=== PATIENT | male | born 1950 | race Caucasian/White ===

== ENCOUNTER 2020-02-22 22:21 | Emergency (ER) | payer MEDICARE, SELFPAY ==
[2020-02-22 22:25] VITALS: BP 132/69; PULSE 81; RESP 15; TEMP 36.4; O2SAT 98
--- NOTE | 2020-02-22 23:21 | ED.WOUNDLAC ---
HPI - Wound/Laceration General Chief Complaint: Wound/Laceration Stated Complaint: finger lac Time Seen by Provider: 02/22/20 22:41 Source: patient Mode of arrival: ambulatory Limitations: no limitations History of Present Illness HPI narrative: This patient is a 69 yo male who presents for evaluation of a left thumb laceration. Patient states 2 hours ago he accidentally cut the side of his left thumb with a small knife. He attempted to clean and apply pressure but he was unable to stop his wound from bleeding. He denies pain, numbness, tingling or weakness . He states his tetanus shot is up to date. Related Data Home Medications Medication Instructions Recorded Confirmed aspirin 81 mg tablet,delayed 81 mg PO DAILY 09/01/19 release atorvastatin 80 mg tablet 80 mg PO DAILY 09/01/19 blood sugar diagnostic #10 each 09/01/19 finasteride 5 mg tablet 5 mg PO DAILY 09/01/19 loratadine 10 mg tablet 10 mg PO DAILY 09/01/19 losartan 50 mg tablet 50 mg PO DAILY 09/01/19 mecobalamin (vitamin B12) 1,000 1,000 mcg SUBLINGUAL DAILY 09/01/19 mcg disintegrating tablet,sublingual metformin 500 mg tablet 1,000 mg PO BID tablet 09/01/19 yzycgxqc-oht-inbyb acid 0.4 1 tablet PO DAILY 09/01/19 mg-lycopene 300 mcg-lutein 250 mcg tablet tamsulosin 0.4 mg capsule 0.4 mg PO DAILY 09/01/19 Allergies Allergy/AdvReac Type Severity Reaction Status Date / Time Dust Allergy Unknown UNKNOWN Uncoded 02/22/20 22:46 Grass Allergy Unknown UNKNOWN Uncoded 02/22/20 22:46 Review of Systems Review of Systems: All systems reviewed & are unremarkable except as noted in HPI and below Constitutional: Constitutional: Denies chills and Denies fever(s) Cardiovascular: Cardiovascular: Denies chest pain PMFSH Past Medical History Medical History (Updated 02/23/20 @ 00:11 by Odalys Chau MD) Diabetes mellitus Surgical History Surgical History (Updated 02/23/20 @ 00:12 by Odalys Chau MD) Hx of tonsillectomy Family History Family History (Updated 05/15/16 @ 23:21 by DOCTOR UNKNOWN) Mother Family history of Alzheimer's disease Hypertension Family history of heart disease in male family member before age 55 Family history of coronary artery disease Father Family history of diabetes mellitus in first degree relative Family history of heart disease in male family member before age 55 Hypertension Family history of coronary artery disease Sibling Patient's sister is in good health Patient's brother is in good health Other Cerebrovascular accident Diabetes mellitus Family history of allergic disorder Family history of cardiovascular disease Social History Social History (Updated 01/01/20 @ 11:11 by Kyra Reed) Smoking packs per day: 2.5 Smoking cigarettes per day: 50.0 Years smoked: 26 Smoking pack-years: 65.00 Smoking status: Former smoker Tobacco type: cigarettes Second hand tobacco smoke exposure: No Smoking end date: 10/18/95 Alcohol intake: never Substance use: never Substance use type: does not use Gender identity (if verbalized by the patient): Female Exam Const: General: alert Orientation/consciousness: patient oriented x3 Skin: Other: see MSK Neuro: General: patient oriented x3 and moves all extremities Extrem: General: no pedal edema Other: left thumg with full ROM, flap laceration to dorsum thumb 1 cm bleeding controlled Course Vital Signs Vital signs: Vital Signs Temperature 97.6 F 02/22/20 22:25 Pulse Rate 81 02/22/20 22:25 Respiratory Rate 15 02/22/20 22:25 Blood Pressure 132/69 02/22/20 22:25 Pulse Oximetry 98 02/22/20 22:25 Temperature 98.0 F 02/23/20 00:04 Pulse Rate 83 02/23/20 00:04 Respiratory Rate 16 02/23/20 00:04 Blood Pressure 134/66 02/23/20 00:04 Pulse Oximetry 100 02/23/20 00:04 Procedures Laceration Laceration 1: Date: 02/22/20 Time: 23:53
[2020-02-23 00:04] VITALS: BP 134/66; PULSE 83; RESP 16; TEMP 36.7; O2SAT 100
== END 2020-02-23 00:07 | disposition home or self-care (01) ==
PROVIDERS: Emergency Provider General Practice; PCP Family Medicine
DX: S61.012A Laceration without foreign body of left thumb without damage to nail, initial encounter (principal); Z79.82 Long term (current) use of aspirin; E11.9 Type 2 diabetes mellitus without complications; Z79.84 Long term (current) use of oral hypoglycemic drugs; Z87.891 Personal history of nicotine dependence; W26.0XXA Contact with knife, initial encounter
CPT/HCPCS: 12001; 99282

== ENCOUNTER → 2021-02-21 06:37 | Outpatient (CLI) | payer MEDICARE, SELFPAY ==
[2021-02-21 18:42] LABS: SARS-CoV-2 RNA PCR Negative
== END ==
PROVIDERS: PCP Family Medicine; Visit Provider Family Medicine
DX: Z20.822 Contact with and (suspected) exposure to COVID-19 (principal)
CPT/HCPCS: C9803; U0003; U0005

== ENCOUNTER → 2021-06-19 03:49 | Outpatient (CLI) | payer MEDICARE, SELFPAY ==
[2021-06-19 19:18] LABS: SARS-CoV-2 RNA PCR Negative
== END ==
PROVIDERS: PCP Family Medicine; Visit Provider Nurse Practitioner Family
DX: Z20.822 Contact with and (suspected) exposure to COVID-19 (principal)
CPT/HCPCS: C9803; U0003; U0005

== ENCOUNTER → 2021-07-08 10:31 | Outpatient (CLI) | payer MEDICARE, SELFPAY ==
--- NOTE | ~2021-07-08 | XR_ITS ---
EXAMINATION: XR ribs BI 3V w CXR 2V EXAM DATE: 07/08/2021 10:49 INDICATION: R07.89 - Other chest pain . Bilateral anterior lower rib pain for one month. TECHNIQUE: Frontal projection of the upper left ribs, frontal projection of the lower left ribs, obli que projection of the left ribs. Frontal projection of the upper right ribs, frontal projection of t he lower right ribs, oblique projection of the right ribs, frontal and lateral chest x-ray(s) for int erpretation. Comparison is made to prior examination from 10/26/2016. FINDINGS: There are no displaced acute rib fractures identified. There are no osteoblastic or osteol ytic lesions identified. No confluent consolidation, pneumothorax or pleural effusion suspected. Th ere are mild bony degenerative changes. IMPRESSION: Unremarkable rib examination. Reviewed, dictated and finalized at location B.
== END ==
PROVIDERS: PCP Family Medicine; Visit Provider Physician Assistant
DX: R07.89 Other chest pain (principal)
CPT/HCPCS: 71046; 71110

== ENCOUNTER 2021-07-10 10:52 | Outpatient (CLI) | payer MEDICARE, SELFPAY ==
--- NOTE | ~2021-07-10 | US_ITS ---
EXAMINATION: US aorta [facility] DATE: 07/10/2021 12:47 CDT INDICATION: Hypertension. Diabetes. History of smoking. High cholesterol. TECHNIQUE: Grayscale, color Doppler, and pulsed Doppler images of the aorta and common iliac arteries were obtained. COMPARISON: None. FINDINGS: The proximal aorta measures 2.6 cm greatest sagittal dimension. The mid aorta measures 2.3 cm greates t sagittal dimension. The distal aorta measures 1.9 cm greatest sagittal dimension. The right common internal iliac artery measures 1.3 cm. The left common iliac artery measures 1.2 cm. IMPRESSION: 1. Normal caliber aorta without aneurysm. Reviewed, dictated and finalized at location A.
--- NOTE | ~2021-07-10 | US_ITS ---
EXAMINATION: US right upper quadrant EXAM DATE: 07/10/2021 12:08 INDICATION: R10.11 - Right upper quadrant pain. TECHNIQUE: Multiple grayscale and Doppler images of the abdomen right upper quadrant were obtained (b y a technologist who performed the scan) and subsequently reviewed. Comparison is made to prior exami nation from 01/02/2014. FINDINGS: The pancreatic head and body are normal in appearance. The pancreatic tail is not visualized. The l iver has normal echogenicity and contour. There are no focal liver lesions identified. There is no evidence of intrahepatic biliary duct dilation. Portal venous flow was seen in the hepatopedal, nor mal direction and has normal Doppler waveform. No right-sided hydronephrosis. Common bile duct measures 4 mm, which is normal. The gallbladder wall is normal in thickness, with ex pected amount of distention. No sonographic evidence of pericholecystic fluid. There is no cholelit hiases. Technologist performing exam reports patient did not demonstrate sonographic Desouza's sign. Please note that this sign is less reliable in patients who have received pain medication. IMPRESSION: 1. Unremarkable abdominal ultrasound exam. Reviewed, dictated and finalized at location B.
== END 2021-07-10 10:53 | disposition home or self-care (01) ==
LOC: ANHIMG 10:56
PROVIDERS: PCP Family Medicine; Visit Provider Physician Assistant
DX: R10.11 Right upper quadrant pain (principal); Z87.891 Personal history of nicotine dependence
CPT/HCPCS: 76705; 76706

== ENCOUNTER → 2021-10-28 07:24 | Outpatient (CLI) | payer MEDICARE, SELFPAY ==
[2021-10-28 21:03] LABS: SARS-CoV-2 RNA PCR Positive
== END ==
PROVIDERS: PCP Family Medicine; Visit Provider Family Medicine
DX: U07.1 COVID-19 (principal)
CPT/HCPCS: C9803; U0003; U0005

== ENCOUNTER 2022-08-01 11:12 | Emergency (ER) | payer MEDICARE, SELFPAY ==
[2022-08-01 11:24] VITALS: BP 116/52; PULSE 79; RESP 18; TEMP 37.3; O2SAT 100
--- NOTE | 2022-08-01 11:34 | ED.URI ---
HPI - URI/Sore Throat General Chief Complaint: Upper Respiratory Infection Stated Complaint: Sore Thoat,Running Nose,Coughing Time Seen by Provider: 08/01/22 11:46 Source: patient and RN notes reviewed Mode of arrival: ambulatory Limitations: no limitations History of Present Illness HPI Narrative: 71-year-old male presents with concern for cough, postnasal drainage, general malaise, low-grade temperature, exposure to strep throat. Reports his grandchildren had strep throat. He reports he was taking cough medicine but ran out. He denies shortness of breath. MD elicited complaint: cough and nasal congestion Related Data Home Medications Medication Instructions Recorded Confirmed aspirin 81 mg tablet,delayed 81 mg PO DAILY 09/01/19 08/01/22 release finasteride 5 mg tablet 5 mg PO DAILY 09/01/19 08/01/22 loratadine 10 mg tablet (Claritin) 10 mg PO DAILY 09/01/19 08/01/22 mecobalamin (vitamin B12) 1,000 1,000 mcg sublingual DAILY 09/01/19 08/01/22 mcg disintegrating tablet,sublingual vdaguqqk-urh-abhox acid 0.4 1 tablet PO DAILY 09/01/19 08/01/22 mg-lycopene 300 mcg-lutein 250 mcg tablet (Centrum Silver) psyllium seed (sugar) oral powder 1 tbsp PO DAILY 12/25/20 08/01/22 (Metamucil (sugar) oral powder) carvedilol 3.125 mg tablet 3.125 mg PO DIRECTED 04/15/22 08/01/22 atorvastatin 20 mg tablet 20 mg PO DAILY 08/01/22 08/01/22 sacubitril 49 mg-valsartan 51 mg 1 tablet PO DAILY 08/01/22 08/01/22 tablet (Entresto) Allergies Allergy/AdvReac Type Severity Reaction Status Date / Time Dust Allergy Unknown UNKNOWN Uncoded 08/01/22 11:28 Grass Allergy Unknown UNKNOWN Uncoded 08/01/22 11:28 Review of Systems Review of Systems: CONSTITUTIONAL: Reports malaise, low-grade fever. EYES: Denies visual changes, redness, or discharge. ENT: Reports rhinorrhea, congestion. Denies sinus pain, otalgia and sore throat. CARDIOVASCULAR: Denies chest pain, palpitations, or edema. RESPIRATORY: Reports cough. Denies dyspnea. GASTROINTESTINAL: Denies abdominal pain, nausea, vomiting, diarrhea SKIN: Denies rash or itching. MUSCULOSKELETAL: Reports myalgia. NEUROLOGIC: Denies headache. All systems reviewed & are unremarkable except as noted in HPI and below PMFSH Past Medical History Medical History (Updated 08/01/22 @ 12:13 by Tamara Pritchard NP) Diabetes mellitus Surgical History Surgical History (Updated 04/15/22 @ 10:49 by Otto Mcpherson MD) History of appendectomy Hx of tonsillectomy Status cardiac pacemaker Family History Family History Mother Family history of Alzheimer's disease Hypertension Family history of heart disease in male family member before age 55 Family history of coronary artery disease Father Family history of diabetes mellitus in first degree relative Family history of heart disease in male family member before age 55 Hypertension Family history of coronary artery disease Sibling Patient's sister is in good health Patient's brother is in good health Other Cerebrovascular accident Diabetes mellitus Family history of allergic disorder Family history of cardiovascular disease Social History Social History Smoking packs per day: 2.5 Smoking cigarettes per day: 50.0 Years smoked: 26 Smoking pack-years: 65.00 Smoking status: Former smoker Tobacco type: cigarettes Second hand tobacco smoke exposure: No Smoking end date: 10/18/95 Alcohol intake: never Substance use: never Substance use type: does not use Gender identity (if verbalized by the patient): Male Sexual Orientation (if Verbalized by the Patient): Straight or Heterosexual Comments At time of signature, agree with nursing past medical, surgical, social and family history. There is no relevant family history pertinent to the presenting complaint Exam Narrative: GENERAL: Nontox
== END 2022-08-01 12:17 | disposition home or self-care (01) ==
PROVIDERS: Emergency Provider Nurse Practitioner; PCP Family Medicine
DX: J06.9 Acute upper respiratory infection, unspecified (principal); R05.9 Cough, unspecified; Z20.822 Contact with and (suspected) exposure to COVID-19; Z87.891 Personal history of nicotine dependence; E11.9 Type 2 diabetes mellitus without complications; Z95.0 Presence of cardiac pacemaker; Z79.82 Long term (current) use of aspirin
CPT/HCPCS: 87081; 87426; 87804; 87880; 99213; C9803; G0463

== ENCOUNTER 2022-08-13 18:12 | Emergency (ER) | payer OTHER, MEDICARE, SELFPAY ==
--- NOTE | ~2022-08-13 | XR_ITS ---
XR lumbar spine min 4V DATE: 08/13/2022 20:54 INDICATION: Low back pain TECHNIQUE: AP, lateral, bilateral oblique and coned lateral lumbosacral views COMPARISON: None FINDINGS: There is minimal levoscoliosis of the lumbar spine. No fracture or bone destruction is detected. The lumbar pedicles are intact. There is degenerative spurring of the included lower thoracic and lumbar spine but the lumbar intersp aces are relatively preserved. There is moderate loss of interspace height at L5-S1. No spondylolysis or spondylolisthesis is detected. The sacroiliac joints appear normal. There is calcification of the abdominal aorta, without evidence of aneurysm. IMPRESSION: Moderate degenerative change Reviewed, dictated and finalized at location A.
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
[2022-08-13 18:14] VITALS: BP 146/67; PULSE 73; RESP 18; TEMP 36.1; O2SAT 95
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
[2022-08-13] MEDS: ACETAMINOPHEN 500 MG TABLET 1000 MG PO (21:30)
== END 2022-08-13 21:50 | disposition home or self-care (01) ==
PROVIDERS: Emergency Provider Emergency Medicine; PCP Family Medicine
DX: M54.50 Low back pain, unspecified (principal); E11.9 Type 2 diabetes mellitus without complications; Z79.82 Long term (current) use of aspirin; Z87.891 Personal history of nicotine dependence; V49.88XA Car occupant (driver) (passenger) injured in other specified transport accidents, initial encounter
CPT/HCPCS: 71046; 72110; 72170; 99284; A9270

== ENCOUNTER 2023-03-06 18:29 | Emergency (ER) | payer MEDICARE, SELFPAY ==
[2023-03-06] VITALS (21 sets, daily range): BP systolic 99–113; BP diastolic 55–64; PULSE 73–132; RESP 12–19; TEMP 37; O2SAT 93–98
--- NOTE | ~2023-03-06 | XR_ITS ---
EXAMINATION: XR chest 1V portable Exam Date/Time: 03/06/2023 19:40 CDT HISTORY: Intractable hiccups SINCE 2300 LAST NIGHT Comparison: 08/13/2022. RESULT: Lines, tubes, and devices: Left chest pacer, with intact leads. Lungs and pleura: Streaky bibasilar scar/atelectasis. No focal consolidation, pneumothorax, or pleur al effusion. Cardiomediastinal silhouette: Stable. Other: No acute osseous or upper abdominal finding. IMPRESSION: No acute cardiopulmonary process. Reviewed, dictated and finalized at location K.
--- NOTE | ~2023-03-06 | CT_ITS ---
EXAMINATION: CT abdomen pelvis w con DATE: 03/06/2023 20:38 INDICATION: Intractable hiccups, vomiting TECHNIQUE: Computed tomography (CT) of the abdomen and pelvis was performed with 100 mL Omnipaque-350 intravenous contrast. Automated exposure control and iterative reconstruction technique were employe d. The dose-length product was 873.58 mGy-cm. COMPARISON: 01/02/2014. FINDINGS: Lower thorax: Mild bibasilar scar/atelectasis. Pacing wires. Calcified granulomas. Liver: 2 cm left lobe hypodensity, with peripheral nodular enhancement and unchanged in size, likely hemangioma. Biliary/Gallbladder: Gallbladder is normal. No bile duct dilation. Pancreas: Fatty infiltrated. Spleen: Normal. Adrenals:No mass. Kidneys: Punctate bilateral nonobstructing calculi. Bilateral subcentimeter hypodensities, too small to characterize but most likely represent cysts. No suspicious mass. Mild bilateral ureterectasis wit hout obstructing stone or mass. GI tract: Small hiatal hernia. No small or large bowel dilation. Appendix not visualized, presumably surgically absent. Mesentery/Peritoneum: No ascites, mass, or free air. Retroperitoneum: No mass. Atherosclerotic abdominal aortic and/or arterial calcifications. Pelvis: Urinary bladder distention with prostatomegaly.. Soft Tissues: Soft tissues and body wall unremarkable. Bones: No acute osseous finding. IMPRESSION: No acute abdominopelvic process detected. Reviewed, dictated and finalized at location K.
--- NOTE | 2023-03-06 19:33 | ED.GENADULT ---
HPI - General Adult General Chief complaint: Unspecified Stated complaint: uncontrolled hiccups since last night Time Seen by Provider: 03/06/23 19:19 History of Present Illness HPI narrative: Patient 72-year-old gentleman who presents emerged department with chief complaint of hiccups. Patient reports that yesterday he started having hiccups and that they have not stopped since. The patient states he tried drinking water patient also reports he had several episodes of emesis associated with this and felt as though his stomach was somewhat bloated initially the patient states the bloating has gone away. Patient reports has had issues before with hiccups that usually goes away after he drinks fluid. Related Data Home Medications Medication Instructions Recorded Confirmed aspirin 81 mg tablet,delayed 81 mg PO DAILY 09/01/19 12/08/22 release finasteride 5 mg tablet 5 mg PO DAILY 09/01/19 12/08/22 loratadine 10 mg tablet (Claritin) 10 mg PO DAILY 09/01/19 12/08/22 mecobalamin (vitamin B12) 1,000 1,000 mcg sublingual DAILY 09/01/19 12/08/22 mcg disintegrating tablet,sublingual dpdndros-hxx-vptpz acid 0.4 1 tablet PO DAILY 09/01/19 12/08/22 mg-lycopene 300 mcg-lutein 250 mcg tablet (Centrum Silver) psyllium seed (sugar) oral powder 1 tbsp PO DAILY 12/25/20 12/08/22 (Metamucil (sugar) oral powder) carvedilol 3.125 mg tablet 3.125 mg PO DIRECTED 04/15/22 12/08/22 atorvastatin 20 mg tablet 20 mg PO DAILY 08/01/22 12/08/22 sacubitril 49 mg-valsartan 51 mg 1 tablet PO DAILY 08/01/22 12/08/22 tablet (Entresto) Allergies Allergy/AdvReac Type Severity Reaction Status Date / Time Dust Allergy Unknown UNKNOWN Uncoded 03/06/23 18:58 Grass Allergy Unknown UNKNOWN Uncoded 03/06/23 18:58 [facility] Past Medical History Medical History Diabetes mellitus Surgical History Surgical History History of appendectomy Hx of tonsillectomy Status cardiac pacemaker Family History Family History Mother Family history of Alzheimer's disease Hypertension Family history of heart disease in male family member before age 55 Family history of coronary artery disease Father Family history of diabetes mellitus in first degree relative Family history of heart disease in male family member before age 55 Hypertension Family history of coronary artery disease Sibling Patient's sister is in good health Patient's brother is in good health Other Cerebrovascular accident Diabetes mellitus Family history of allergic disorder Family history of cardiovascular disease Social History Social History Smoking packs per day: 2.5 Smoking cigarettes per day: 50.0 Years smoked: 26 Smoking pack-years: 65.00 Smoking status: Former smoker Tobacco type: cigarettes Second hand tobacco smoke exposure: No Smoking end date: 10/18/95 Alcohol intake: never Substance use: never Substance use type: does not use Living arrangements: with family Occupation/Education: retired Gender identity (if verbalized by the patient): Male Sexual Orientation (if Verbalized by the Patient): Straight or Heterosexual Course Vital Signs Vital signs: Vital Signs Temperature 37.0 C 03/06/23 18:44 Pulse Rate 77 03/06/23 18:44 Respiratory Rate 16 03/06/23 18:44 Blood Pressure 99/64 L 03/06/23 18:44 Pulse Oximetry 96 03/06/23 18:44 Temperature 37.0 C 03/06/23 18:44 Pulse Rate 78 03/06/23 19:30 Respiratory Rate 13 03/06/23 19:30 Blood Pressure 99/64 L 03/06/23 18:44 Pulse Oximetry 94 03/06/23 19:30 Medical Decision Making MDM Narrative Medical decision making narrative: Differential diagnosis includes intractable hiccups, electrolyte abnormality, neoplasm gastroesophageal
[2023-03-06 19:55] LABS: Eosinophils Absolute Auto 0.2 K/mm3 (0-0.3); Eosinophils Percent Auto 4.8 % (0-4.4); Hematocrit 39.7 % (42.0-52.0); Immature Granulocyte Absolute 0.02 K/mm3 (0.00-0.031); Immature Granulocyte Percent A 0.5 % (0-0.5); Lymphocytes Absolute Auto 0.87 K/mm3 (0.9-3.2); Lymphocytes Percent Auto 19.7 % (18.3-44.2); Mean Corpuscular HGB Conc 32.7 g/dl (32-36); Mean Corpuscular Hemoglobin 33.4 pg (26-34); Mean Corpuscular Volume 102.1 fl (80-100); Mean Platelet Volume 9.5 fl (7.4-10.4); Monocytes Absolute Auto 0.6 K/mm3 (0.1-0.6); Monocytes Percent Auto 12.5 % (2.6-8.5); Neutrophils Absolute Auto 2.8 K/mm3 (1.3-6.7); Neutrophils Percent Auto 62.5 % (45.5-73.1); Platelet Count Result 159 k/mm3 (150-375); Red Blood Count 3.89 M/mm3 (4.6-6.20); Red Cell Distribution Width 14.6 % (11.5-14.5); White Blood Count 4.4 K/mm3 (4.5-10.0)
[2023-03-06 19:56] LABS: Appearance Urine Clear (Clear); Bilirubin Urine Negative (Negative); Blood Urine Negative (Negative); Color Urine Yellow (Yellow); Glucose Urine UA 3+ mg/dL (Negative); Ketones Urine Negative (Negative); Leukocyte Esterase Ur Negative LEU/UL (Negative); Nitrate Urine Negative (Negative); Protein Urine Negative (Negative); Specific Grav Ur <= 1.005 (1.001-1.035); Urobilinogen Urine 0.2 mg/dL (<2.0)
[2023-03-06] MEDS: diphenhydrAMINE HCl INJ 50 MG/ML VIAL 25 MG IV PUSH (19:56)
[2023-03-06] MEDS: SODIUM CHLORIDE 0.9% IV 1,000 ML 999 ML IV CONT (19:57)
[2023-03-06] MEDS: PROCHLORPERAZINE EDISYLATE 10 MG/2 ML VIAL IV PUSH (19:57)
[2023-03-06 20:01] LABS: Add Urine Microscopic? YES
[2023-03-06 20:05] LABS: Alanine Aminotransferase 25 U/L (6-50); Albumin Level 4.1 g/dL (3.5-5.1); Alkaline Phosphatase 51 U/L (38-126); Anion Gap 7 mmol/L (8-16); Aspartate Amino Transferase 28 U/L (17-59); Bilirubin,Total 0.5 mg/dL (0.2-1.3); Blood Urea Nitrogen 21 mg/dL (9-20); Calcium 8.1 mg/dL (8.4-10.2); Carbon Dioxide 28 mmol/L (22-30); Chloride 97 mmol/L (98-107); Estimated CRCL calculation 59 ml/min; Estimated Glomerular Filt Rate > 60; Glucose 163 mg/dL (65-110); Lipase 38 U/L (23-300); Magnesium 1.8 mg/dL (1.6-2.3); Potassium 3.7 mmol/L (3.4-5.0); Sodium 132 mmol/L (137-145)
[2023-03-06 20:06] LABS: Prothrombin Time 13.7 Seconds (11.1-14.7)
[2023-03-06 20:07] LABS: Partial Thromboplastin Time 30.2 SECONDS (22.3-36.8)
[2023-03-06 20:16] LABS: Troponin I < 0.012 ng/mL (0.000-0.034)
--- NOTE | 2023-03-06 20:55 | PC.NURSE ---
Pts hiccups have resolved at this time
[2023-03-06] MEDS: METOCLOPRAMIDE HCL INJ 10 MG/2 ML VIAL IV PUSH (22:20)
[2023-03-06] MEDS: BACLOFEN 5 MG TABLET PO (22:39)
[2023-03-06 23:12] LABS: Troponin I < 0.012 ng/mL (0.000-0.034)
== END 2023-03-06 23:03 | disposition home or self-care (01) ==
PROVIDERS: Emergency Provider Emergency Medicine; PCP Family Medicine
DX: R06.6 Hiccough (principal); E11.9 Type 2 diabetes mellitus without complications; Z95.0 Presence of cardiac pacemaker; Z87.891 Personal history of nicotine dependence; Z79.82 Long term (current) use of aspirin; Z79.84 Long term (current) use of oral hypoglycemic drugs
CPT/HCPCS: 36415; 71045; 74177; 80053; 81001; 83605; 83690; 83735; 84484; 85025; 85610; 85730; 96361; 96374; 96375; 99284; A9270; J0780; J1200; J2765; J7030; Q9967

== ENCOUNTER 2023-05-28 00:54 | Day surgery (SDC) | payer MEDICARE, SELFPAY ==
[2023-05-18 11:13] VITALS: BMI 27.6
[2023-05-28 07:05] VITALS: BP 124/68; PULSE 74; RESP 18; TEMP 36.3; O2SAT 97; BMI 27.1
--- NOTE | 2023-05-28 07:26 | PM.HPGS ---
History of Present Illness History of Present Illness Consent: Risks, benefits, and alternatives have been discussed and questions answered. Patient agrees to proceed with procedure. Chief complaint: atypical chest pain Narrative: Felipe York is a 72 year old male Presents for EGD. Patient reports he has had an atypical chest pressure. In the mid substernal portion of the chest he gets a discomfort pressure-like pain. Not related to diet or activity. It will occur spontaneously. Sometimes well sitting or working sometimes while eating but not consistently either case. He has been on omeprazole for some time for presumed acid reflux. Pain has occurred despite this. He currently is trying Tums with no specific relief of symptoms. He is on no other agents. Previous EGD 10 years ago was unremarkable. Patient presents today for EGD because of atypical chest discomfort. Review of Systems Review of Systems: Review of systems noncontributory. [facility] Past Medical History Medical History Diabetes mellitus Surgical History Surgical History History of appendectomy Hx of tonsillectomy Status cardiac pacemaker Family History Family History Mother Family history of Alzheimer's disease Hypertension Family history of heart disease in male family member before age 55 Family history of coronary artery disease Father Family history of diabetes mellitus in first degree relative Family history of heart disease in male family member before age 55 Hypertension Family history of coronary artery disease Sibling Patient's sister is in good health Patient's brother is in good health Other Cerebrovascular accident Diabetes mellitus Family history of allergic disorder Family history of cardiovascular disease Social History Social History Smoking packs per day: 2.5 Smoking cigarettes per day: 50.0 Years smoked: 26 Smoking pack-years: 65.00 Smoking status: Former smoker Tobacco type: cigarettes Second hand tobacco smoke exposure: No Smoking end date: 10/18/95 Alcohol intake: never Substance use: never Substance use type: does not use Living arrangements: with family Occupation/Education: retired Gender identity (if verbalized by the patient): Male Sexual Orientation (if Verbalized by the Patient): Straight or Heterosexual Spiritual care concerns: No Meds Home Medications and Allergies Home Medications Medication Instructions Recorded Confirmed Type aspirin 81 mg tablet,delayed 81 mg PO HS 09/01/19 05/28/23 History release finasteride 5 mg tablet 5 mg PO DAILY 09/01/19 05/28/23 History clbmaexf-yvi-degqr acid 0.4 1 tablet PO DAILY 09/01/19 05/28/23 History mg-lycopene 300 mcg-lutein 250 mcg tablet (Centrum Silver) tamsulosin 0.4 mg capsule (Flomax) 0.4 mg PO DAILY #90 caps 02/17/21 05/28/23 Rx blood sugar diagnostic #100 ea 10/28/21 05/28/23 Rx montelukast 10 mg tablet 10 mg PO DAILY #90 tabs 04/21/22 05/28/23 Rx sacubitril 49 mg-valsartan 51 mg 1 tablet PO DAILY 08/01/22 05/28/23 History tablet (Entresto) glipizide 5 mg tablet 5 mg PO BID #180 tabs 11/03/22 05/28/23 Rx atorvastatin 20 mg tablet 20 mg PO DAILY #90 tabs 03/18/23 05/28/23 Rx omeprazole 40 mg capsule,delayed 40 mg PO DAILY #90 caps 04/14/23 05/28/23 Rx release empagliflozin 25 mg tablet 25 mg PO QAM #30 tabs 05/03/23 05/28/23 Rx (Jardiance) carvedilol 25 mg tablet 25 mg PO BID 05/18/23 05/28/23 History metformin 1,000 mg tablet 1,000 mg PO BID 05/18/23 05/28/23 History Allergies Allergy/AdvReac Type Severity Reaction Status Date / Time No Known Allergies Allergy Verified 05/28/23 07:11 Exam Narrative: Physical exam reveals patient to be alert. Vital si
[2023-05-28 07:27] LABS: Glucose Point of Care 130 mg/dl (65-105)
[2023-05-28] MEDS: LACTATED RINGERS 1,000 ML 150 ML IV CONT (07:31)
--- NOTE | 2023-05-28 08:25 | WPDANESEPPF ---
Anes - Initial Pre Proc Eval Procedure: Operation Date: 05/28/23 08:30 Proposed Procedures p Esophagogastroduodenoscopy - Tobias Medeiros MD Date/Time: 05/28/23 08:25 Surgeon: Tobias Medeiros MD Pre Op Diagnosis: atypical chest pain Patient Data Age: 72 Gender: M Height: 1.83 m Weight: 90.8 kg Last Vital Signs Temp 97.4 F L 05/28/23 07:05 Pulse 74 05/28/23 07:05 Resp 18 05/28/23 07:05 BP 124/68 05/28/23 07:05 Pulse Ox 97 05/28/23 07:05 O2 Del Method Room Air 05/28/23 07:05 Allergies Allergy/AdvReac Type Severity Reaction Status Date / Time No Known Allergies Allergy Verified 05/28/23 07:11 Home Medications Medication Instructions Recorded Confirmed Type aspirin 81 mg tablet,delayed 81 mg PO HS 09/01/19 05/28/23 History release finasteride 5 mg tablet 5 mg PO DAILY 09/01/19 05/28/23 History cbwznnck-gys-ztzfw acid 0.4 1 tablet PO DAILY 09/01/19 05/28/23 History mg-lycopene 300 mcg-lutein 250 mcg tablet (Centrum Silver) tamsulosin 0.4 mg capsule (Flomax) 0.4 mg PO DAILY #90 caps 02/17/21 05/28/23 Rx blood sugar diagnostic #100 ea 10/28/21 05/28/23 Rx montelukast 10 mg tablet 10 mg PO DAILY #90 tabs 04/21/22 05/28/23 Rx sacubitril 49 mg-valsartan 51 mg 1 tablet PO DAILY 08/01/22 05/28/23 History tablet (Entresto) glipizide 5 mg tablet 5 mg PO BID #180 tabs 11/03/22 05/28/23 Rx atorvastatin 20 mg tablet 20 mg PO DAILY #90 tabs 03/18/23 05/28/23 Rx omeprazole 40 mg capsule,delayed 40 mg PO DAILY #90 caps 04/14/23 05/28/23 Rx release empagliflozin 25 mg tablet 25 mg PO QAM #30 tabs 05/03/23 05/28/23 Rx (Jardiance) carvedilol 25 mg tablet 25 mg PO BID 05/18/23 05/28/23 History metformin 1,000 mg tablet 1,000 mg PO BID 05/18/23 05/28/23 History Laboratory Tests 05/28/23 07:24 POC Capillary Glucose 130 H mg/dl (65-105) Patient hx anesthesia problems: none Family hx anesthesia problems: none Results Review: All pre-operative results and documents have been reviewed as part of the pre-operative evaluation. [facility] Past Medical History Medical History Diabetes mellitus Surgical History Surgical History History of appendectomy Hx of tonsillectomy Status cardiac pacemaker Family History Family History Mother Family history of Alzheimer's disease Hypertension Family history of heart disease in male family member before age 55 Family history of coronary artery disease Father Family history of diabetes mellitus in first degree relative Family history of heart disease in male family member before age 55 Hypertension Family history of coronary artery disease Sibling Patient's sister is in good health Patient's brother is in good health Other Cerebrovascular accident Diabetes mellitus Family history of allergic disorder Family history of cardiovascular disease Social History Social History Smoking packs per day: 2.5 Smoking cigarettes per day: 50.0 Years smoked: 26 Smoking pack-years: 65.00 Smoking status: Former smoker Tobacco type: cigarettes Second hand tobacco smoke exposure: No Smoking end date: 10/18/95 Alcohol intake: never Substance use: never Substance use type: does not use Living arrangements: with family Occupation/Education: retired Gender identity (if verbalized by the patient): Male Sexual Orientation (if Verbalized by the Patient): Straight or Heterosexual Spiritual care concerns: No Anes - Eval Final PreProcedure Day of Procedure 05/28/23 08:25 Patient weight: normal Heart: regular rate and rhythm Lungs: clear to auscultation Airway: Mallampati scale class II Neurological: alert and oriented Last oral intake: >/= 8 hours ASA classification: III Em
[2023-05-28 08:47] VITALS: BP 116/67; PULSE 71; RESP 15; O2SAT 93
[2023-05-28 08:57] VITALS: BP 115/72; PULSE 70; RESP 17; O2SAT 95
[2023-05-28 09:07] VITALS: BP 120/74; PULSE 65; RESP 15; O2SAT 94
== END 2023-05-28 09:16 | disposition home or self-care (01) ==
PROVIDERS: PCP Family Medicine; Visit Provider Internal Medicine Gastroenterology
PROC: 0DJ08ZZ Inspection of Upper Intestinal Tract, Via Natural or Artificial Opening Endoscopic (ICD-10-PCS; CPT 43235; principal; 2023-05-28 08:30)
DX: R07.89 Other chest pain (principal); E11.9 Type 2 diabetes mellitus without complications; Z79.82 Long term (current) use of aspirin; Z79.84 Long term (current) use of oral hypoglycemic drugs; Z95.0 Presence of cardiac pacemaker; Z87.891 Personal history of nicotine dependence
CPT/HCPCS: 43239; 82948; 87081; J2704; J7120

== ENCOUNTER 2023-07-07 13:18 | Outpatient (CLI) | payer MEDICARE, SELFPAY ==
--- NOTE | ~2023-07-07 | XR_ITS ---
XR chest 2V 07/07/2023 13:37 Indication: Cough for 5 days Procedure: 2 view chest Comparison: Comparison to multiple prior studies sequentially, with oldest reviewed study dated 06/2017. Findings: Heart size normal. No focal air space disease, pulmonary edema, pleural effusion or suspect ed pneumothorax. Sequential pacemaker leads in the right atrium and right ventricle respectively. No acute osseous abnormality. Impression: 1: No acute cardiopulmonary disease. Reviewed, dictated and finalized at location A. Impression: 1: No acute cardiopulmonary disease.
== END 2023-07-07 13:19 | disposition home or self-care (01) ==
PROVIDERS: PCP Family Medicine; Visit Provider Family Medicine
DX: R05.9 Cough, unspecified (principal)
CPT/HCPCS: 71046

== ENCOUNTER 2023-12-24 12:19 | Outpatient (CLI) | payer MEDICARE, SELFPAY ==
--- NOTE | ~2023-12-24 | CT_ITS ---
CT Scan of the Chest without Contrast: Clinical Indication: Chronic cough Technique: Contiguous sections were acquired throughout the chest without intravenous contrast. Dose reduction technique was used on this scan by utilizing automated exposure control and iterative recon struction technique. The dose-length product (DLP) was 334.51 mGy-cm. Findings: There is no evidence of any significant mediastinal, hilar or axillary lymphadenopathy. The mediastin al soft tissues appear normal. There is no evidence of pleural or pericardial effusion. The lungs are clear. No pulmonary nodules or infiltrates are noted. Minimal emphysema noted. Images through the upper abdomen reveal vague, subtle 1.5 cm hypodense area in the peripheral right h epatic lobe.. Impression: Minimal emphysema. Subtle 1.5 cm hypodense lesion liver, stable since prior abdominal pelvic CT dated 03/06/2023. Reviewed, dictated and finalized at location . [employer] Impression: Minimal emphysema. Subtle 1.5 cm hypodense lesion liver, stable since prior abdominal pelvic CT da jovita 03/06/2023.
== END 2023-12-24 12:20 | disposition home or self-care (01) ==
LOC: ANHIMG 12:22
PROVIDERS: PCP Family Medicine; Visit Provider Family Medicine
DX: J43.9 Emphysema, unspecified (principal); K76.9 Liver disease, unspecified
CPT/HCPCS: 71250

== ENCOUNTER 2024-03-27 08:00 | Outpatient (CLI) | payer MEDICARE, SELFPAY ==
--- NOTE | ~2024-03-27 | XR_ITS ---
MODIFIED ESOPHAGRAM HISTORY: Chronic cough TECHNIQUE: Modified barium esophagram was performed on 03/27/2024. I administered fluoroscopy and perf ormed the exam with speech pathologist. Patient was seated for lateral fluoroscopic imaging for lele stion of thin liquids, pudding, solids and quantified amounts, followed by thin liquids in uncontroll ed amounts. This was recorded on tape. A single fluoroscopic spot image was also recorded. The DAP fo r this procedure was 0.746 Gycm2. The amount of fluoroscopy time used during this procedure was 1.1 m inutes. FINDINGS: Oral stage: Adequate function. Pharyngeal stage: Adequate function. Incidentally noted small anterior osteophytes at C5-C6. Cervical/esophageal stage: Adequate function. IMPRESSION: Patient tolerated regular consistency oral feedings in the upright position. Please arianne elate with speech pathologist findings and specific feeding recommendations. Reviewed, dictated and finalized at location A. IMPRESSION: Patient tolerated regular consistency oral feedings in the upright position. Please correlate with speech pathologist findings and specific feedi ng recommendations.
--- NOTE | 2024-03-27 13:33 | REHSTMBS ---
Assessment and note entered by Neda Blake, PROP SAWYER Modified Barium Swallow Evaluation Feeding Type Recommended Oral Food Consistency Regular, Level 7 Liquid Consistency Thin (0) ST Clinical Summary MODIFIED BARIUM SWALLOW This patient was seen for a Modified Barium Swallow study to assess his risk of aspiration. He reports that he has intermittent difficulty swallowing characterized as a feeling that food is hanging up in the back of his throat. He reports that when he attempts to swallow, the food won't go down and that he has to drink water to clear the pooled material. He stated that this has been occurring for maybe one or two years... maybe longer. He reported that he must take small sips of water, that he cannot chug water anymore. Patient also reported that he feels that he has phlegm in his throat all the time, that he cannot swallow, that it only goes down so far, and that he has to cough it up. Patient was viewed in the lateral position to the level of C5/C6. He was presented with thin liquid contrast medium per cup and also per straw, pudding mixed with semi-solid contrast medium, and then fruit cocktail pieces and large sherie cracker pieces, both coated with the semi-solid mixture. He exhibited quick swallows with no evidence of penetration or aspiration and no significant oral or pharyngeal residue following swallows. He did exhibit a small osteophyte; please refer to radiologist report for that information. The osteophyte did not appear to impact his ability to swallow and clear pharyngeal material during this evaluation but might indicate further assessment. Patient may remain on Regular Diet and Liquids, but it was suggested he take small bites and chew thoroughly, possibly avoid iojy-mn-nuhd foods such as certain meats and breads. He voiced understanding. No further Speech Therapy is indicated. Thank you for this referral.
== END 2024-03-27 08:01 | disposition home or self-care (01) ==
PROVIDERS: PCP Family Medicine; Visit Provider Family Medicine
DX: R05.3 Chronic cough (principal)
CPT/HCPCS: 92611

== ENCOUNTER 2024-04-05 07:56 | Outpatient (CLI) | payer MEDICARE, SELFPAY ==
--- NOTE | 2024-04-05 13:00 | WPDPFTINT ---
PFT Procedure Performed PFT Procedure Performed Spirometry with Pre/Post Bronchodilator Plethysmography (Lung Vol) Diffusing Cap (DLCO) Flow Vol Loop PFT Interpretation Lung volumes were measured with the body plethysmography method. Lung volumes are unremarkable. Spirometry showed normal expiratory flow rates and a normal FEV1 to FVC ratio of 69%. Following administration of a bronchodilator there was no significant increase in expiratory flow rates. Lung diffusion capacity is within the normal range at 91% predicted. The flow volume loop is unremarkable. Impression: Spirometry, lung volumes, and lung diffusion capacity within the normal range.
--- NOTE | 2024-04-05 13:02 | WPDSIXMINUTE ---
Six Minute Walk Procedure Procedure Performed Pulmonary Stress Test (6 min walk) Six Minute Walk Six Minute Walk: This 6 minute walk test was carried out with the patient breathing ambient air. The baseline at rest oxyhemoglobin saturation was 96% the. The patient walked 365 m with no stops during testing. During the walk the oxyhemoglobin saturation remained in the range of 96% to 97%. Impression: No evidence of oxyhemoglobin desaturation on this testing.
== END 2024-04-05 07:57 | disposition home or self-care (01) ==
LOC: ANHPFT 07:58
PROVIDERS: PCP Family Medicine; Visit Provider Physician Assistant
DX: R05.9 Cough, unspecified (principal); J43.9 Emphysema, unspecified
CPT/HCPCS: 94060; 94618; 94726; 94729

== ENCOUNTER 2024-08-03 15:10 | Outpatient (CLI) | payer MEDICARE, SELFPAY ==
--- NOTE | 2024-08-03 15:20 | ECG_ITS ---
Test Date: 2024-08-03 15:27:48 Measurements Intervals [place] Rate: 62 P: 18 NE: 194 QRS: 100 QRSD: 196 T: 73 QT: 447 QTc: 456 Interpretive Statements SINUS RHYTHM BORDERLINE RIGHT AXIS DEVIATION [QRS AXIS > 90] INTRAVENTRICULAR CONDUCTION DELAY [130+ ms QRS DURATION] No previous ECG available for comparison Electronically Signed On 08-04-2024 13:31:34 CDT by Iza Jones M.D.
== END 2024-08-03 15:11 | disposition home or self-care (01) ==
LOC: ANHCARD 15:15
PROVIDERS: PCP Family Medicine; Visit Provider Nurse Practitioner Family
DX: I50.9 Heart failure, unspecified (principal); I11.0 Hypertensive heart disease with heart failure; Z95.0 Presence of cardiac pacemaker; I45.9 Conduction disorder, unspecified
CPT/HCPCS: 93005

== ENCOUNTER 2024-11-08 00:54 | Day surgery (SDC) | payer MEDICARE, SELFPAY ==
[2024-10-26 12:20] VITALS: BP 100/56; PULSE 71; RESP 16; TEMP 36.6; O2SAT 97; BMI 25.8
--- NOTE | 2024-10-26 12:44 | PC.NURSE ---
Report to the Outpatient Waiting Room, entrance under the green pavilion located off [facility], at time ___8:30AM____ on date ___11/08/24____. Planned Procedure Time: ___10:30AM .? Time changes happen often and if your time is changed the preop area will call you the afternoon before. - You and your visitor will be asked to self-screen and do not enter if you have any COVID symptoms. Please call surgeon if you need to reschedule. - A mask is optional within the hospital at this time. Patients may have clear liquids (water, carbonated beverages, clear teas, apple juice) until 3 hours prior to surgery (7:30AM) with a maximum of 20 ounces. - No food from midnight until time of surgery and no smoking. This includes no chewing gum, candy or mints. Take only the following medications with a SIP of water on the morning of surgery: ____TRELEGY INHALER, CARVEDILOL DO NOT STOP ANY OF YOUR OTHER PRESCRIPTION MEDICATIONS PRIOR TO SURGERY EXCEPT THE FOLLOWING Medications to discontinue per physician HOLD ASPIRIN & ALL VITAMINS/SUPPLEMENTS 7 DAYS PRE-OP PER DR LOU Date to take last dose 10/31/24 Please no make-up, nail sami, hairspray, perfume, deodorant, or body powder the day of surgery.? No jewelry (including any body piercings) or valuables the day of surgery, leave them at home.? Please take a shower or bath the night before, or the morning of, surgery with an antibacterial soap.? Wear comfortable, loose fitting clothing.? Children are encouraged to wear pajamas. - Jewelry must be removed prior to entering the operating room.? Rings and piercings that are not removed may be cut off. - The hospital will not accept responsibility for valuables.? - Please leave all valuables, including medications, at home the day of surgery. If you are going home after surgery, a licensed commercial truck driver must drive you home.? - NO public transportation without another adult if you receive anesthesia. - We recommend that an adult stay with you for 24 hours following discharge. - We also recommend that you do not drive, make important decision, drink alcoholic beverages, or take any drugs that were not prescribed by your health care provider for at least 24 hours after your discharge time. Follow any additional instructions given to you from your surgeon. Telephone instructions given to ____PATIENT & WIFE and asked if any additional questions and then verbalized understanding. Patient advised to call surgeon office or pre surgery nurse liaison [phone] if any additional questions.
--- NOTE | 2024-11-07 15:34 | P.PNAN_ITS ---
Anes - Initial Pre Proc Eval Procedure: Operation Date: 11/08/24 10:30 Proposed Procedures p Left Total Knee Arthroplasty - Brandt Choe MD Date/Time: 11/07/24 15:34 Surgeon: Brandt Choe MD Pre Op Diagnosis: Lt Knee O A Patient Data Age: 74 Gender: M Height: 1.83 m Weight: 86.5 kg Last Vital Signs Temp 36.6 C 10/26/24 12:20 Pulse 71 10/26/24 12:20 Resp 16 10/26/24 12:20 BP 100/56 L 10/26/24 12:20 Pulse Ox 97 10/26/24 12:20 O2 Del Method Room Air 10/26/24 12:20 Allergies Allergy/AdvReac Type Severity Reaction Status Date / Time No Known Allergies Allergy Verified 11/08/24 09:26 Home Medications ?Medication ?Instructions ?Recorded ?Confirmed ?Type aspirin 81 mg tablet,delayed 81 mg PO HS 09/01/19 11/08/24 History release finasteride 5 mg tablet 5 mg PO DAILY 09/01/19 11/08/24 History pdwhwoka-aoh-vkhyp acid 0.4 1 tablet PO DAILY 09/01/19 11/08/24 History mg-lycopene 300 mcg-lutein 250 mcg tablet (Centrum Silver) tamsulosin 0.4 mg capsule (Flomax) 0.4 mg PO DAILY #90 caps 02/17/21 11/08/24 Rx sacubitril 49 mg-valsartan 51 mg 1 tablet PO DAILY 08/01/22 11/08/24 History tablet (Entresto) carvedilol 25 mg tablet 25 mg PO BID 05/18/23 11/08/24 History blood sugar diagnostic #100 ea 07/07/23 10/27/24 Rx omeprazole 40 mg capsule,delayed 40 mg PO DAILY #90 caps 12/20/23 11/08/24 Rx release montelukast 10 mg tablet 10 mg PO DAILY #90 tabs 03/01/24 11/08/24 Rx atorvastatin 20 mg tablet 20 mg PO DAILY #90 tabs 03/27/24 11/08/24 Rx glipizide 5 mg tablet 5 mg PO BID #180 tabs 04/24/24 11/08/24 Rx fluticasone fur. 100 mcg-umeclid 1 inh inhalation DAILY #180 ea 07/20/24 10/27/24 Rx 62.5 mcg-vilant 25 mcg inhalat.powder (Trelegy Ellipta) empagliflozin 25 mg tablet See Rx Instructions .Route 08/13/24 11/08/24 Rx (Jardiance) .COMPLEX #90 tabs metformin 1,000 mg tablet 1,000 mg PO BID #180 tabs 08/13/24 11/08/24 Rx famotidine 20 mg tablet (Acid 20 mg PO HS 10/26/24 11/08/24 History Controller) chlorhexidine gluconate 4 % 1 applic topical ONCE #237 mL 11/01/24 Rx topical liquid (Hibiclens) Patient hx anesthesia problems: none Family hx anesthesia problems: none Results Review: All pre-operative results and documents have been reviewed as part of the pre- operative evaluation. [facility] Past Medical History Medical History (Updated 11/07/24 @ 15:34 by Adi Torres DO) Cardiac pacemaker Device Name: Terrie Left knee DJD Personal history of nicotine dependence Dysphagia Cough Emphysema, unspecified CHF (congestive heart failure) EF 45% Heart failure due to high blood pressure Atypical chest pain History of smoking 30 or more pack years Diabetes mellitus Type 2 diabetes mellitus with hyperglycemia Chronic GERD Coronary artery disease involving [place] coronary artery of [place] heart Enlarged prostate with lower urinary tract symptoms (LUTS) History of colon polyps Pure hypercholesterolemia Type 2 diabetes mellitus without complications Surgical History Surgical History History of right knee surgery 03/27/2004 Status cardiac pacemaker History of appendectomy Hx of tonsillectomy Family History Family History Mother Family history of Alzheimer's disease Hypertension Family history of heart disease in male family member before age 55 Family history of coronary artery disease Father Family history of diabetes mellitus in first degree relative Family history of heart disease in male family member before age 55 Hypertension Family history of coronary artery disease Sibling Patient's sister is in good health Patient's brother is in good health Other Cerebrovascular accident Diabetes mellitus Family history of allergic disorder Family history of cardiovascular disease Social History Social History Smoking packs per day: 2.5 Smoking cigarettes per day: 50.0 Years smoked: 26 Smoking pack-years: 65.00 Smoking status: Former smoker Tobacco type: cigarettes Second hand tobacco smoke exposure: No Smoking end date: 10/18/95 Alcohol intake: never Substance use: never Substance use type: does not use Living arrangements: with family Additional living arrangements comments: Occupation/Education: retired Gender identity (if verbalized by the patient): Male Sexual Orientation (if Verbalized by the Patient): Straight or Heterosexual Spiritual care concerns: No Anes - Eval Final PreProcedure Day of Procedure 11/07/24 15:34 Patient weight: overweight Heart: regular rate and rhythm Lungs: clear to auscultation Airway: Mallampati scale class II Neurological: alert and oriented Last oral intake: >/= 8 hours ASA classification: IV Emergent: no Anesthetic plan: proceed Anesthesia type and monitoring: general LMA and standard monitoring Results Review: All pre-operative results and documents have been reviewed as part of the pre- operative evaluation. Informed Consent: The patient's anesthetic plan and its attendant risks and benefits were discussed with the patient/family/POA. Questions were solicited and answers provided to the satisfaction of the patient/family/POA.
[2024-11-08] VITALS (19 sets, daily range): BP systolic 103–128; BP diastolic 55–73; PULSE 59–82; RESP 10–20; TEMP 36.2–36.8; O2SAT 93–100; BMI 25.4
--- NOTE | ~2024-11-08 | XR_ITS ---
EXAMINATION: [id number] DATE: 11/08/2024 13:44 INDICATION: Left knee arthroplasty. Postop. TECHNIQUE: 2 views of left knee were obtained. COMPARISON: Left knee radiographs 06/22/2024 FINDINGS: There is a total left knee arthroplasty without patellar resurfacing in near-anatomic align ment. There are tiny osteophytes of the patella. No fracture. There is gas in the knee joint and soft tissues, consistent with recent surgery. Anterior skin neo are noted. IMPRESSION: 1. Total left knee arthroplasty in near-anatomic alignment. Reviewed, dictated and finalized at location B. [facility]NER
--- NOTE | 2024-11-08 07:28 | WPDHPUPDATE1 ---
History and Physical Update Update Date/Time: 11/08/24 07:28 History and Physical has been reviewed, including an updated exam of the patient. There are NO changes in the patient's condition. Risks, benefits, and alternatives have been discussed and questions answered. Patient agrees to proceed with procedure.
[2024-11-08] MEDS: LACTATED RINGERS 1,000 ML 30 ML IV CONT (08:50)
[2024-11-08 09:09] LABS: Glucose Point of Care 155 mg/dl (65-105)
[2024-11-08] MEDS: ACETAMINOPHEN 500 MG TABLET 1000 MG PO (09:13)
[2024-11-08] MEDS: TRANEXAMIC ACID 1,000MG/ISO100 1,000 MG/100 ML BAG 200 MG IVPB (10:08)
--- NOTE | 2024-11-08 10:55 | WPDANESPNB ---
Anes - Peripheral Nerve Block Date/Time: 11/08/24 10:55 I have discussed with the patient/family/POA the placement of a peripheral nerve block for post-operative pain management, including associated risks, benefits, complications, and side effects. Alternative methods of post-operative analgesia were detailed. Questions were solicited and answers provided to the satisfaction of the patient/family/POA. Time-Out: A pre-procedural Time-Out was completed immediately before starting the procedure and confirmed: Patient Identification, Site, Procedure, Patient Position and the Availability of Requisite Equipment. Clinical Indications: Acute post-operative pain management requested by the operative surgeon. Nerve Block Insertion Note Anes-nerve block: adductor canal left Patient position: supine Skin prep: chlorhexidine Needle: 22 gauge, stimulating, insulated echogenic needle. Needle length: 80 mm Technique: ultrasound Injectate: bupivacaine 0.5% with epi 5 mcg/ml (30cc - no epi) Observations: tolerated well Complications: none Procedure start time:: 1048 Procedure end time:: 105
[2024-11-08] MEDS: ceFAZolin 2 GM/D5W 50 ML 2 GM/50 ML BAG IVPB ×2 (10:57→17:59)
[2024-11-08] MEDS: SODIUM CHLORIDE 0.9% IV 37.7 ML, MORPHINE SULFATE INJ (*CRX) 2 MG, ROPivacaine HCL 1% 2... INFILTRATE (11:31)
[2024-11-08] MEDS: TRANEXAMIC ACID 1,000 MG/10 ML AMPUL 1000 MG IV PUSH (12:53)
--- NOTE | 2024-11-08 13:21 | W.PM.PROC2 ---
Procedure Note - Detailed Date of Procedure 11/08/24 Pre-op Diagnosis Lt Knee O A Post-op Diagnosis Same Procedure Performed L TKA Surgeon Brandt Choe MD Anesthesia General Description of Procedure THE LEFT KNEE WAS PREPPED AND DRAPED IN THE STERILE FASHION. THERE WAS A 20 DEGREE FLEXION CONTRACTURE. A MIDLINE SKIN INCISION WAS MADE. A MEDIAL PARAPATELLAR ARTHROTOMY WAS MADE. THE PATELLA WAS EVERTED. THERE WAS TRICOMPARTMENT DJD. THERE WAS MINIMAL PATELLA DJD. AN INTRAMEDULLARY KOBI WAS PLACED IN THE FEMUR. A DISTAL FEMORAL CUT WAS MADE IN 5 DEGREES OF VALGUS REMOVING APPROXIMATELY 11 MM OF BONE FROM THE DISTAL FEMUR. THE FEMUR WAS SIZED TO 72.5. A 72.5 FEMORAL CUTTING BLOCK WAS PLACED IN 3 DEGREES OF EXTERNAL ROTATION AND IN ALIGNMENT WITH DEBORAH'S LINE AND THE TRANSEPICONDYLAR AXIS. ANTERIOR POSTERIOR AND CHAMFER CUTS WERE MADE. THE CUTS WERE EXCELLENT. NEXT AN INTRAMEDULLARY CUTTING GUIDE WAS PLACED IN THE TIBIA. A TRANS TIBIAL CUT WAS MADE ALONG THE LONG AXIS OF THE TIBIA. APPROXIMATELY 10 MM OF BONE WAS REMOVED FROM THE HIGH SIDE OF THE TIBIA. THE TIBIA WAS THEN PLANED TO A SMOOTH SURFACE. POSTERIOR FEMORAL OSTEOPHYTES WERE REMOVED FROM THE FEMORAL CONDYLES. A 79 TIBIAL TRIAL WAS PLACED IN ALIGNMENT WITH THE 1/3 MEDIAL ASPECT OF THE TIBIAL TUBERCLE. THEN A 72.5 FEMORAL TRIAL COMPONENT WAS PLACED. BOTH HAD EXCELLENT FITS. EVENTUALLY A 10 MM CR POLYETHYLENE TRIAL COMPONENT WAS PLACED. THE KNEE WAS TAKEN THROUGH A RANGE OF MOTION. THE KNEE CAME OUT TO FULL EXTENSION. THERE WAS NO ABNORMAL TILT TO THE PATELLA. THERE WAS GOOD A/P AND VARUS/VALGUS STABILITY. THERE WAS NO EXCESSIVE ROLL BACK WITH FLEXION. THE TRIAL COMPONENTS WERE REMOVED. THEN A 72.5 FEMORAL COMPONENT AND 79 TIBIAL COMPONENT WITH A 10 CR POLYETHYLENE COMPONENT WERE CEMENTED INTO PLACE. ONCE THE CEMENT WAS HARD THE KNEE WAS TAKEN THROUGH A ROM AGAIN AND FOUND TO BE STABLE WITH NO PATELLA TILT NO EXCESSIVE ROLL BACK WITH FLEXION AND GOOD STABILITY WITH COMPLETE AND FULL EXTENSION. THE KNEE WAS IRRIGATED WITH STERILE BETADINE AND WATER FOR ABOUT 3 MINUTES. THE BLEEDERS WERE CAUTERIZED. THE ARTHROTOMY WAS REPAIRED WITH NUMBER 1 VICRYL. THE SUB CUTANEOUS LAYER WITH 2-0 VICRYL AND THE SKIN WITH LITO. THE WOUND WAS WASHED AND A STERILE DRESSING WAS APPLIED. PATIENT WAS EXTUBATED. Estimated Blood Loss -150.0 Pathology None sent Complications No immediate complications Condition Stable Disposition PACU
[2024-11-08 14:05] LABS: Glucose Point of Care 136 mg/dl (65-105)
[2024-11-08 17:26] LABS: Glucose Point of Care 155 mg/dl (65-105)
--- NOTE | 2024-11-08 17:39 | PC.NURSE ---
This patient, Felipe York, was admitted to [facility] Surg Room 309-01. Patient/family oriented to hospital policies and general routines including ID bracelet, bed and alarms, visiting hours, pain management, procedures, bathroom and other care routines, personal items, smoking policy, room service/diet, and visiting hours. Information on how to activate the Rapid Response Team has been discussed. Patient/Family are encouraged to report perceived risks to care and to ask questions if they do not understand what they are told or what they should do.
[2024-11-08] MEDS: SENNA/DOCUSATE SODIUM TABLET 2 TAB PO (17:58)
[2024-11-08] MEDS: metFORMIN HCL 500 MG TABLET 1000 MG PO (17:58)
[2024-11-08] MEDS: CELECOXIB 200 MG CAPSULE PO (17:58)
[2024-11-08] MEDS: glipiZIDE 5 MG TABLET PO (17:58)
[2024-11-08] MEDS: FAMOTIDINE 20 MG TABLET PO (20:54)
[2024-11-08] MEDS: carvediloL 25 MG TABLET PO (20:54)
[2024-11-08] MEDS: ATORVASTATIN 20 MG TABLET PO (20:54)
[2024-11-08] MEDS: ASPIRIN 325 MG ENTERIC TABLET PO (20:54)
[2024-11-08 21:11] LABS: Glucose Point of Care 184 mg/dl (65-105)
[2024-11-09] MEDS: ceFAZolin 2 GM/D5W 50 ML 2 GM/50 ML BAG IVPB ×2 (02:06→09:27)
[2024-11-09 05:42] VITALS: BP 111/59; PULSE 76; RESP 16; TEMP 37.3; O2SAT 92
[2024-11-09 06:47] LABS: Basophils Percent Auto 0.3 % (0.2-1.2); Eosinophils Absolute Auto 0.2 K/mm3 (0-0.3); Eosinophils Percent Auto 2.7 % (0-4.4); Hematocrit 36.7 % (42.0-52.0); Immature Granulocyte Absolute 0.02 K/mm3 (0.00-0.031); Immature Granulocyte Percent A 0.3 % (0-0.5); Lymphocytes Absolute Auto 1.07 K/mm3 (0.9-3.2); Lymphocytes Percent Auto 16.9 % (18.3-44.2); Mean Corpuscular HGB Conc 32.7 g/dl (32-36); Mean Corpuscular Hemoglobin 33.9 pg (26-34); Mean Corpuscular Volume 103.7 fl (80-100); Mean Platelet Volume 9.7 fl (7.4-10.4); Monocytes Absolute Auto 0.7 K/mm3 (0.1-0.6); Monocytes Percent Auto 10.9 % (2.6-8.5); Neutrophils Absolute Auto 4.4 K/mm3 (1.3-6.7); Neutrophils Percent Auto 68.9 % (45.5-73.1); Platelet Count Result 138 k/mm3 (150-375); Red Blood Count 3.54 M/mm3 (4.6-6.20); Red Cell Distribution Width 13.6 % (11.5-14.5); White Blood Count 6.4 K/mm3 (4.5-10.0)
[2024-11-09 07:06] LABS: Anion Gap 7 mmol/L (4-12); Blood Urea Nitrogen 18 mg/dL (9-20); Calcium 8.2 mg/dL (8.4-10.2); Carbon Dioxide 25 mmol/L (22-30); Chloride 106 mmol/L (98-107); Estimated CRCL calculation 88 ml/min; Estimated Glomerular Filt Rate > 60; Glucose 92 mg/dL (65-110); Potassium 3.5 mmol/L (3.4-5.0); Sodium 138 mmol/L (137-145)
[2024-11-09 07:48] LABS: Glucose Point of Care 116 mg/dl (65-105)
[2024-11-09] MEDS: oxyCODONE/ACETAMINOPHEN (*CRX) 5-325 MG TABLET 1 TABLET PO ×2 (08:08→13:08)
[2024-11-09 08:10] VITALS: BP 102/55; PULSE 82; O2SAT 94
[2024-11-09] MEDS: glipiZIDE 5 MG TABLET PO (08:10)
[2024-11-09] MEDS: MULTIVITAMINS /C LUTEIN (CENTRUM SILVER) TABLET *BKC 1 TAB PO (08:10)
[2024-11-09] MEDS: MONTELUKAST SODIUM 10 MG TABLET PO (08:10)
[2024-11-09] MEDS: PANTOPRAZOLE 40 MG TABLET PO (08:10)
[2024-11-09] MEDS: ASPIRIN 325 MG ENTERIC TABLET PO (08:10)
[2024-11-09] MEDS: CELECOXIB 200 MG CAPSULE PO (08:10)
[2024-11-09] MEDS: FINASTERIDE 5 MG TABLET PO (08:10)
[2024-11-09] MEDS: SACUBITRIL/VALSARTAN 49-51 MG TABLET 1 TABLET PO (08:11)
[2024-11-09] MEDS: SENNA/DOCUSATE SODIUM TABLET 2 TAB PO (08:11)
[2024-11-09] MEDS: polyethylene glycoL 3350 17 GM POWD.PACK PO (08:11)
[2024-11-09] MEDS: EMPAGLIFLOZIN 25 MG TABLET BY MOUTH (08:11)
[2024-11-09] MEDS: TAMSULOSIN HCL 0.4 MG CAPSULE PO (08:11)
[2024-11-09] MEDS: metFORMIN HCL 500 MG TABLET 1000 MG PO (08:11)
[2024-11-09 08:17] VITALS: PULSE 82
[2024-11-09] MEDS: carvediloL 25 MG TABLET PO (08:17)
--- NOTE | 2024-11-09 09:17 | P.PNOP_ITS ---
Progress Note: A&P Assessment and Plan (1) S/P total knee arthroplasty: Qualifiers: Laterality: left Qualified Code(s): Z96.652 - Presence of left artificial knee joint Code(s): Z96.659 - Presence of unspecified artificial knee joint Status: Acute Assessment and Plan: POD #1 : Left TKA Continue PT/OT. WBAT. Walker. HIGH FALL RISK. Continue pain control. Ice Knee. Protect skin. DVT prophylaxis with Aspirin. SCDs. Incentive Spirometry Use reviewed. Monitor Dressing. Change prior to discharge. Bowel Regimen. Dispo: Home with Home Health pending progress with PT/OT Plan Reviewed history, exam, radiographs and current labs with attending MD and covering surgeon, Dr. Choe, who agrees with current plan as indicated above. No further recommendations from Dr. Choe at this time. Subjective Subjective Date/Time Seen: 11/09/24 09:17 Post Op day: 1 Principal diagnosis: Left Knee DJD Interval history: Left TKA POD #1 Patient doing well. Pain well controlled. No new concerns. Review of Systems Review of Systems: All systems reviewed & are unremarkable except as noted in HPI and below Constitutional: Constitutional: Denies fever(s) and Denies headache(s) ENT: Denies headache(s) Cardiovascular: Cardiovascular: Denies chest pain, Denies diaphoresis, Denies palpitations and Denies dyspnea Respiratory: Respiratory: Denies dyspnea Gastrointestinal: Gastrointestinal: Denies abdominal pain, Denies constipation, Denies nausea and Denies vomiting Genitourinary: Genitourinary: Denies dysuria and Reports nocturia Musculoskeletal: Musculoskeletal: Reports arthralgias (Left Knee ), Reports joint swelling (Left Knee ) and Reports limited range of motion (ROM limited due to recent surgical intervention LEFT Knee ) Neurologic: Denies headache(s) Endocrine: Endocrine: Denies palpitations Exam Const: General: comfortable and no acute distress Resp: Effort & Inspection: normal respiratory effort Cardio: Rate: regular rate Rhythm: regular rhythm GI: GI Palp: Yes Soft to palpation, No Tenderness to palpation present (GI) and No Guarding due to palpation present (GI) Skin: General skin exam: wounds noted (see extremity assessment ) Wounds: wounds noted (see extremity assessment ) Neuro: Cognition (Neuro): normal cognition Other: NV intact aside from block. Moves toes. Sensation intact to light touch. +ankle dorsiflexion/plantarflexion. Extrem: Left lower extremity: normal to inspection, normal capillary refill, knee Details: tenderness (diffuse ) Location: of the patella, swelling (moderate consistent to recent surgery ), abnormal ROM (limited due to recent surgery ) Details: pain with active ROM and pain with passive ROM and ecchymosis (as expected with recent surgery. NO hematoma. ), lower leg (Negative Rene's Sign ), ankle (+ankle dorsiflexion/plantarflexion ) Details: normal to inspection, no edema and normal ROM; no tenderness and no swelling and foot Details: normal capillary refill, toes with normal ROM, vascular exam Details: dorsalis pedis pulse present and motor-sensory exam light-touch normal; no tenderness Other: Incision left TKA dressing c/d/i. No hematoma. No signs of infection. No wound dehiscence. Psych: Mental Status: mental status grossly normal Objective Data Vital Signs Vital Signs: Vital Signs - 24 hr 11/08/24 13:25 11/08/24 13:40 11/08/24 13:55 Temperature 36.4 C Pulse Rate 64 71 65 Respiratory Rate 14 10 L 15 Blood Pressure 113/57 L 122/56 L 121/71 Pulse Oximetry 100 100 93 Oxygen Delivery Simple Face Mask Simple Face Mask Room Air Oxygen Flow Rate 8 8 11/08/24 14:10 11/08/24 14:25 11/08/24 14:40 Temperature Pulse Rate 59 L 78 63 Respiratory Rate 14 15 Blood Pressure 124/59 L 126/67 127/55 L Pulse Oximetry 98 98 99 Oxygen Delivery Room Air Room Air Room Air Oxygen Flow Rate 11/08/24 14:55 11/08/24 15:10 11/08/24 15:25 Temperature Pulse Rate 62 76 74 Respiratory Rate 13 13 10 L Blood Pressure 114/60 122/62 120/63 Pulse Oximetry 97 98 98 Oxygen Delivery Room Air Room Air Room Air Oxygen Flow Rate 11/08/24 15:45 11/08/24 16:15 11/08/24 16:45 Temperature Pulse Rate 66 76 64 Respiratory Rate 15 Blood Pressure 128/67 105/66 125/57 L Pulse Oximetry 98 98 Oxygen Delivery Room Air Room Air Room Air Oxygen Flow Rate 11/08/24 17:00 11/08/24 17:01 11/08/24 17:37 Temperature 36.2 C L 36.3 C L Pulse Rate 68 70 67 Respiratory Rate 15 20 20 Blood Pressure 119/62 120/73 124/68 Pulse Oximetry 98 100 Oxygen Delivery Room Air Oxygen Flow Rate 11/08/24 18:45 11/08/24 20:54 11/08/24 21:17 Temperature 36.6 C 36.6 C Pulse Rate 71 72 72 Respiratory Rate 18 18 Blood Pressure 121/65 112/58 L Pulse Oximetry 97 96 Oxygen Delivery Oxygen Flow Rate 11/09/24 05:42 11/09/24 08:05 11/09/24 08:17 Temperature 37.3 C Pulse Rate 76 82 Respiratory Rate 16 Blood Pressure 111/59 L Pulse Oximetry 92 Oxygen Delivery Room Air Oxygen Flow Rate Intake/Output Intake/Output: Intake & Output 11/06/24 11/07/24 11/08/24 11/09/24 23:59 23:59 23:59 23:59 Intake Total 700 480 Output Total 400 700 Balance 300 -220 Meds/Results Medications: Active Medications Generic Name Dose Route Start Last Admin Trade Name Chandler PRN Reason Stop Dose Admin Aspirin 325 mg 11/08/24 21:00 11/09/24 08:10 Aspirin 325 Mg Enteric Tablet PO 325 mg Q12HR KIARA Administration Atorvastatin Calcium 20 mg 11/08/24 21:00 11/08/24 20:54 Atorvastatin 20 Mg Tablet PO 20 mg HS KIARA Administration Carvedilol 25 mg 11/08/24 21:00 11/09/24 08:17 Carvedilol 25 Mg Tablet PO 25 mg Q12HR KIARA Administration Celecoxib 200 mg 11/08/24 17:01 11/09/24 08:10 Celecoxib 200 Mg Capsule PO 200 mg BIDWM KIARA Administration Diazepam 5 mg 11/08/24 17:01 Diazepam (*Crx) 5 Mg Tablet PO Q8H PRN Spasms Diphenhydramine HCl 25 mg 11/08/24 17:01 Diphenhydramine Hcl Inj 50 Mg/Ml Vial IV PUSH Q6H PRN Itching Empagliflozin 25 mg 11/09/24 09:00 11/09/24 08:11 Empagliflozin 25 Mg Tablet BY MOUTH 25 mg DAILY KIARA Administration Famotidine 20 mg 11/08/24 21:00 11/08/24 20:54 Famotidine 20 Mg Tablet PO 20 mg HS KIARA Administration Finasteride 5 mg 11/09/24 09:00 11/09/24 08:10 Finasteride 5 Mg Tablet PO 5 mg DAILY KIARA Administration Fluticasone/Umeclidinium/Vilanterol 1 puff 11/10/24 08:00 Fluticasone/Umeclidin/Vilanter 100-62.5-25 Mcg Ellipta INHALATION DAILYRT [facility] Glipizide 5 mg 11/08/24 17:01 11/09/24 08:10 Glipizide 5 Mg Tablet PO 5 mg BIDWM KIARA Administration Hydromorphone HCl 1 mg 11/08/24 17:01 Hydromorphone Hcl Inj (*Crx) 1 Mg/Ml Syr IV PUSH Q2H PRN Breakthrough Pain Rated 7-10 or NPO Hydromorphone HCl 0.5 mg 11/08/24 17:01 Hydromorphone Hcl Inj (*Crx) 1 Mg/Ml Syr IV PUSH Q2H PRN Breakthrough Pain Rated 4-6 or NPO Ibuprofen 800 mg in 200 mls @ 400 mls/hr 11/08/24 17:01 Caldolor 800 Mg/200 Ml IVPB Q6H PRN Breakthrough Pain Rated 1-3 or NPO Cefazolin Sodium 2 gm in 50 mls @ 100 mls/hr 11/08/24 18:00 11/09/24 02:06 Ancef 2 Gm/D5w 50 Ml IVPB 11/09/24 10:29 100 mls/hr Q8H KIARA Administration Metformin HCl 1,000 mg 11/08/24 17:01 11/09/24 08:11 Metformin Hcl 500 Mg Tablet PO 1,000 mg BID KIARA Administration Montelukast Sodium 10 mg 11/09/24 09:00 11/09/24 08:10 Montelukast Sodium 10 Mg Tablet PO 10 mg DAILY KIARA Administration Multivitamins/Minerals 1 tab 11/09/24 09:00 11/09/24 08:10 Multivitamins /C Lutein (Centrum Silver) Tablet *Bkc PO 1 tab DAILY KIARA Administration Naloxone HCl 0.1 mg 11/08/24 17:01 Naloxone Hcl 0.4 Mg/Ml Vial IV PUSH Q2M PRN Opiate Reversal Ondansetron HCl 4 mg 11/08/24 17:01 Ondansetron Inj 4 Mg/2 Ml Vial IV PUSH Q4H PRN Nausea And Vomiting Oxycodone/Acetaminophen 1 tablet 11/08/24 17:01 11/09/24 08:08 Oxycodone/Acetaminophen (*Crx) 5-325 Mg Tablet PO 1 tablet Q4H PRN Administration Pain Rated 4-6 Oxycodone/Acetaminophen 1 tab 11/08/24 17:01 Oxycodone/Acetaminophen (*Crx) 10-325 Mg Tablet PO Q6H PRN Pain Rated 7-10 Pantoprazole Sodium 40 mg 11/09/24 09:00 11/09/24 08:10 Pantoprazole 40 Mg Tablet PO 40 mg BID KIARA Administration Polyethylene Glycol 17 gm 11/09/24 09:00 11/09/24 08:11 Polyethylene Glycol 3350 17 Gm Powd.Pack PO 17 gm QAM KIARA Administration Sacubitril/Valsartan 1 tablet 11/09/24 09:00 11/09/24 08:11 Sacubitril/Valsartan 49-51 Mg Tablet PO 1 tablet DAILY KIARA Administration Senna/Docusate Sodium 2 tab 11/08/24 17:01 11/09/24 08:11 Senna/Docusate Sodium Tablet PO 2 tab BID KIARA Administration Tamsulosin HCl 0.4 mg 11/09/24 09:00 11/09/24 08:11 Tamsulosin Hcl 0.4 Mg Capsule PO 0.4 mg DAILY KIARA Administration Radiology Results: ITS Impressions Knee X-Ray 11/08/24 13:45 IMPRESSION: 1. Total left knee arthroplasty in near-anatomic alignment. Labs Labs: Laboratory Results - last 24 hr 11/08/24 11/08/24 11/08/24 14:01 17:21 18:59 WBC RBC Hgb Hct MCV MCH MCHC RDW Plt Count MPV Immature Gran % (Auto) Neut % (Auto) Lymph % (Auto) [place] % (Auto) Eos % (Auto) Baso % (Auto) Lymph # (Auto) [place] # (Auto) Eos # (Auto) Baso # (Auto) Abs Immat Gran (auto) Absolute Neuts (auto) Absolute Nucleated RBC Nucleated RBC % Sodium Potassium Chloride Carbon Dioxide Anion Gap BUN Creatinine Estim Creat Clear Calc Estimated GFR Glucose POC Capillary Glucose 136 H 155 H Calcium Blood Type A Positive Antibody Screen Negative 11/08/24 11/09/24 11/09/24 20:39 06:30 07:19 WBC 6.4 RBC 3.54 L Hgb 12.0 L Hct 36.7 L MCV 103.7 H MCH 33.9 MCHC 32.7 RDW 13.6 Plt Count 138 L MPV 9.7 Immature Gran % (Auto) 0.3 Neut % (Auto) 68.9 Lymph % (Auto) 16.9 L [place] % (Auto) 10.9 H Eos % (Auto) 2.7 Baso % (Auto) 0.3 Lymph # (Auto) 1.07 [place] # (Auto) 0.7 H Eos # (Auto) 0.2 Baso # (Auto) 0.0 Abs Immat Gran (auto) 0.02 Absolute Neuts (auto) 4.4 Absolute Nucleated RBC 0.000 Nucleated RBC % 0.0 Sodium 138 Potassium 3.5 Chloride 106 Carbon Dioxide 25 Anion Gap 7 BUN 18 Creatinine 0.70 Estim Creat Clear Calc 88 Estimated GFR > 60 Glucose 92 POC Capillary Glucose 184 H 116 H Calcium 8.2 L Blood Type Antibody Screen Quality VTE Prophylaxis VTE prophylaxis: pharmacologic ordered
[2024-11-09] MEDS: HYDROmorphone HCL INJ (*CRX) 1 MG/ML SYR IV PUSH (09:41)
--- NOTE | 2024-11-09 09:52 | PCPTNOTE ---
0825- Per RN and OT, patient did not receive pain meds overnight and is in too much pain to participate with PT at this time. 0950- per RN patient received IV dilaudid and is now sleeping soundly. Will follow.
[2024-11-09 10:46] VITALS: BP 100/54; PULSE 66; RESP 12; TEMP 36.4; O2SAT 95
[2024-11-09 11:30] LABS: Glucose Point of Care 192 mg/dl (65-105)
[2024-11-09 14:33] VITALS: BP 117/56; PULSE 74; RESP 16; TEMP 36.4; O2SAT 95
--- NOTE | 2024-11-09 14:43 | PCPTNOTE ---
On 11/09/24, the student, ROBSON Castro, provided care and completed [facility] documentation on this patient. I have reviewed the student's documentation and agree with the findings.
--- OUTSIDE RECORDS SUMMARY | 2024-11-09 20:58 | XMS_ITS | Patient Health Summary ---
Author Organization [facility] Address [address] [place] [address] Care Team Providers Care Permit Specialist Name Role Phone Otto Mcpherson MD Primary Care Provider [phone] Note from [facility],non-owned Affiliates and Associated Physician Practices is amultiple site organization consisting of ambulatory clinics and hospital sitesin [place], [place]. This disclosure is being madepursuant to the Care Everywhere program and may not contain all information available regarding this patient. Last updated 18.[facility] Allergies * Dust Mite Extract(Other) -High Criticality * Grass Pollen(K-O-R-T-Swt Maninder)(Other) -High Criticality Medications * Be aware that medications may not be up to date on this document. Alwaysverify current medications with the patient. * montelukast (Singulair) 10 MG tablet(Started 04/21/2022) Take 10 mg by mouth once daily * albuterol HFA (Proventil; Ventolin; Proair) 108 (90 Base) MCG/ACT inhaler (Started 10/30/2021) * atorvastatin (Lipitor) 20 MG tablet(Started 03/30/2022) Take 20 mg by mouth once daily * carvedilol (Coreg) 25 MG tablet(Started 03/30/2022) Take 25 mg by mouth 2 times daily * glipiZIDE (Glucotrol) 5 MG tablet(Started 05/02/2022) Take 5 mg by mouth 2 times daily * metFORMIN (Glucophage) 500 MG tablet(Started 05/24/2022) Take 500 mg by mouth 2 times daily * Jardiance 25 MG tablet(Started 06/09/2022) Take 25 mg by mouth once daily * finasteride (Proscar) 5 MG tablet(Started 04/05/2022) Take 5 mg by mouth once daily * omeprazole (PriLOSEC) 40 MG capsule(Started 04/05/2022) Take 40 mg by mouth once daily * aspirin EC (Ecotrin) 81 MG tablet Take 81 mg by mouth once daily * famotidine (Pepcid) 20 MG tablet(Started 06/11/2022) Take 1 (one) tablet by mouth at bedtime 4 refills by 06/11/2023 Active Problems No known active problems Social History Tobacco Use Types Packs/Day Years Used Date Smoking Tobacco: Former Cigarettes Q uit: 1995 Smokeless Tobacco: Never Alcohol Use Standard Drinks/Week Comments Never 0 (1 standard drink = 0.6 oz pur e alcohol) Sex and Gender Information Value Date Recorded Sex Assigned at Not on file Gender Identity Not on file Sexual Orientation Not on file Last Filed Vital Signs Vital Sign Reading Time Taken Comments Blood Pressure 113/69 06/11/2022 10:45 AM CDT Pulse 78 06/11/2022 10:45 AM CDT Temperature - - Respiratory Rate - - Oxygen Saturation - - Inhaled Oxygen Concentration - - Weight 91.2 kg (201 lb) 06/11/2022 10:45 AM CDT Height 182.9 cm (6') 06/11/2022 10:45 AM CDT Body Mass Index 27.26 06/11/2022 10:45 AM CDT Procedures * NM LARYNGOSCOPY,FLEX FIBER,DIAGNOSTIC(Performed 06/11/2022) Performed for Cough, Postnasal drip, Gastroesophageal reflux disease, unspecified whether esophagitis present Results * NM LARYNGOSCOPY,FLEX FIBER,DIAGNOSTIC (06/11/2022 11:50 AM CDT) Narrative Marino Arceo MD - 06/11/2022 11:50 AM CDT Merlin Fox MD ? 06/15/2022 ??8:18 AM Procedure Note Endoscopy Type: ??Laryngoscopy without stroboscopy Endoscope: Flexible 4mm Scope Anesthesia: Lidocaine 2% and Neosynephrine 1/2% (nasal) Procedure Details: The patient was sitting upright with the head in a slightly anterior sniffing position. The topical anesthesia was administered and then adequate time was allowed ??for an anesthetic effect. The endoscope was passed through the nasal cavity with the tongue retracted anteriorly. The tip of the endoscope was positioned in the oropharynx which allowed a complete view of the base of tongue, vallecula, pyriform recesses, epiglottis, bilateral true and false vocal folds, the interarytenoid and post cricoid region, and the immediate subglottis. Findings: -Nasal cavity: no masses or lesions, normal mucosa -Nasopharynx: no masses or lesions, normal mucosa -Oropharynx: no masses or lesions, normal mucosa -Hypopharynx/Larynx: no masses or lesions, normal mucosa -Cord mobility: full and appropriate -Airway patency: widely patent Condition: Stable. ??Patient tolerated procedure well. Complications: None Dr Arceo was present for the entirety of the procedure. Enrique Fox MD Otolaryngology Resident 06/11/2022 Marino Arceo MD PROCEDURE/MINOR DILLARD RGICAL ORDERABLES Care Teams Permit Specialist Relationship Specialty Start Date End Date Otto Mcpherson MD [address] [place] [address] PCP - General 04/04/19
--- OUTSIDE RECORDS SUMMARY | 2024-11-09 20:58 | XMS_ITS | Clinical Summary ---
Author Organization [facility] Address [address] [place] [address] Care Team Providers Care Trash Hauler Name Role Phone Otto Mcpherson MD Primary Care Provider [phone] Source Comments [facility] Affiliates and Associated Physician Practices is [facility] organization consisting of ambulatory clinics and hospital sitesin [place], [place], [place] and [place]. This disclosure is being madepursuant to the Care Everywhere program and may not contain all information available regarding this patient. Last updated 18.[facility] Allergies Active Allergy Reactions Criticality Noted Date Comments Dust Mite Extract Other High 08/05/2017 Grass Pollen(K-O-R-T-Swt Maninder) Other High 08/05 Medications * Be aware that medications may not be up to date on this document. Alwaysverify current medications with the patient. Medication Sig Dispensed Refills Start Date End Date Status montelukast (Singulair) 10 MG tablet Take 10 mg by mouth once daily 04/21/2022 Active albuterol HFA (Proventil; Ventolin; Proair) 108 (90 Base) MCG/ACT inhaler 10/30/2021 Active atorvastatin (Lipitor) 20 MG tablet Take 20 mg by mouth once daily 03/30/2022 Active carvedilol (Coreg) 25 MG tablet Take 25 mg by mouth 2 times daily 03/30/2022 Active glipiZIDE (Glucotrol) 5 MG tablet Take 5 mg by mouth 2 times daily 05/02/2022 Active metFORMIN (Glucophage) 500 MG tablet Take 500 mg by mouth 2 times daily 05/24/2022 Active Jardiance 25 MG tablet Take 25 mg by mouth once daily 06/09/2022 Active finasteride (Proscar) 5 MG tablet Take 5 mg by mouth once daily 04/05/2022 Active omeprazole (PriLOSEC) 40 MG capsule Take 40 mg by mouth once daily 04/05/2022 Active aspirin EC (Ecotrin) 81 MG tablet Take 81 mg by mouth once daily Active famotidine (Pepcid) 20 MG tabletIndications:Cou gh Take 1 (one) tablet by mouth at bedtime 90 tablet 4 06/11/2022 Active Active Problems No known active problems Social [...] Mass Index 27.26 06/11/2022 10:45 AM CDT Plan of Treatment Health Maintenance Due Date Last Done Comments COLOGUARD (AGES 45-75) - COL ON CA SCREENING 1950 COLON MONITORING 1950 COLONOSCOPY - COLON CA SCREENING 1950 CT COLONOGRAPHY - COLON CA SCREENING 1950 Colorectal Cancer Screening 1950 FIT - COLON CA SCREENING 1950 FLEX SIG - COLON CA SCREENING 1950 MEDICARE AWV ? 12 MONTHS 1950 HEPATITIS C SCREENING 08/09/1968 DTAP/TDAP/TD VACCINES (1 - Tdap) 1969 PNEUMOCOCCAL VACCINE 50+ (1 of 1 - PCV) 2000 ZOSTER VACCINE (1 of 2) 2000 Respiratory Syncytial Virus (RSV) Vaccine Pt: or over 60 yrs (1 - Risk 60-74 years 1-dose series) 2010 AAA SCREENING 2015 COVID-19 VACCINE (1 - 2023-2 5 season) 2024 INFLUENZA VACCINE (#1) 2024 DEPRESSION SCREENING 10/18/2024 HEPATITIS B VACCINE Aged Out No longe r eligible based on patient's age to complete this topic HIB VACCINE Aged Out No longer eligi ble based on patient's age to complete this topic HPV VACCINE Aged Out No longer eligi ble based on patient's age to complete this topic MENINGOCOCCAL (Group B) VACCINE Aged Out No longer eligible based on patient's age to complete this topic MENINGOCOCCAL VACCINE Aged Out No iglesia kam eligible based on patient's age to complete this topic Care Teams Trash Hauler Relationship Specialty Start Date End Date Otto Mcpherson MD [address] [place] [address] PCP - General 04/04/19
--- OUTSIDE RECORDS SUMMARY | 2024-11-09 20:58 | XMS_ITS | Clinical Summary ---
Author Organization [facility] [place] [address] Address [address] [place] [address] Care Team Providers Care Telephone Lines Repairer Name Role Phone Otto Mcpherson MD Primary Care Provider Adryan Constantino MD Unavailable Lamont Molina MD Unavailable [phone] Allergies No known active allergies Medications Jardiance 25 mg tablet 01/05/2021 Active metFORMIN (GLUCOPHAGE) 500 mg tablet 11/23/2020 Active glipiZIDE (GLUCOTROL) 5 mg tablet Take by mouth 01/27/2017 Active atorvastatin (LIPITOR) 80 mg tablet daily 04/08/2020 Active aspirin 81 mg enteric coated tablet Take by mouth 01/24/2015 Active montelukast (SINGULAIR) 10 mg tablet 10/21/2020 Active omeprazole (PriLOSEC) 40 mg capsule 01/05/2021 Active finasteride (PROSCAR) 5 mg tablet Take by mouth 01/27/2017 Active cetirizine 10 mg tablet,disintegr ating Take by mouth 10/18/1969 Active tamsulosin (FLOMAX) 0.4 mg extended release capsule 11/17/2021 Active oxkonqhx89-djje- Lmfolate-algal 27 mg iron-1.13 mg-581.92 mg capsule Take by mouth Active carvediloL (COREG) 6.25 mg tablet Take 1 tablet (6.25 mg total) by mouth 2 (two) times a day with meals 60 tablet 03/19/2022 Active sacubitriL-valsa rtan (ENTRESTO) 24-26 mg tabletIndication s:chronic heart failure Take 1 tablet by mouth 2 (two) times a day 60 tablet 03/19/2022 Active Active Problems Problem Noted Date Diagnosed Date Complete heart block (CMS/HCC) 03/14/2022 Palpitation 01/06/2021 Essential hypertension 01/06/2021 Mixed hyperlipidemia 01/06/2021 Right bundle branch block 01/06/2021 Surgical History Surgery Date Site/Laterality Comments KNEE SURGERY APPENDECTOMY EYE SURGERY HERNIA REPAIR Medical History Medical History Date Comments Hypertension Wears dentures Cardiac rhythm disturbance Diabetes mellitus (HCC) Hyperlipidemia Family History Medical History Relation Name Comments Diabetes Father Alzheimer's disease Mother Relation Name Status Comments Brother 1 Alive Brother 2 Alive Father (Age 80) Mother (Age 83) Sister 1 Alive Sister 2 Alive Social History Tobacco Use Types Packs/Day Years Used Date Smoking Tobacco: Former Cigarettes Q uit: 1995 Smokeless Tobacco: Never AUDIT-C Answer Date Recorded Q1: How often do you have a drink containing alc ohol? Never 03/14/2022 Q2: How many drinks containi ng alcohol do you have on a typical day when you are drinking? Patient declined 03/14/2022 Q3: How often do you have si x or more drinks on one occasion? 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 Gender Identity Not on file Sexual Orientation Not on file Obstetrics History Last Filed Vital Signs Vital Sign Reading Time Taken Comments Blood Pressure 99/57 03/19/2022 11:51 AM CDT Pulse 68 03/19/2022 12:00 PM CDT Temperature 36.3 ??C (97.4 ??F) 03/19/2022 11:51 AM C DT Respiratory Rate 18 03/19/2022 11:51 AM CDT Oxygen Saturation 94% 03/19/2022 11:51 AM CDT Inhaled Oxygen Concentration - - Weight 90.3 kg (199 lb) 03/14/2022 12:05 AM CDT Height 182.9 cm (6') 03/14/2022 12:05 AM CDT Body Mass Index 26.99 03/14/2022 12:05 AM CDT Plan of Treatment Health Maintenance Due Date Last Done Comments Colon Cancer Screening-Colonoscopy 1950 Depression Screening 1950 Hepatitis C Screening 1950 Pneumococcal vaccine 65+ (1 of 2 - PCV) 1956 DTaP/Tdap/Td Vaccine (1 - Tdap) 1961 Hepatitis B Screening 1968 Abdominal Aortic Aneurysm (A AA) Screen 2015 Well Visit 65+ 2015 Zoster Vaccine (2 of 3) 04/08/2016 02/12/2016 Fall Risk Assessment 03/19/2023 03/19/2022 Influenza Vaccine (#1) 2024 9, 06/20/2018, 06/29/2017, Additional history exists Medical Devices Implanted Type Area Operator Coating Furnace Device Identifier Shelf Expiration Date Model / Serial / Lot [employer]onic Cardiac Rhythm Mgmt [id number] [place] S Mri Surescan 50.8x46.6mm 2 Chamber 7.4mm Pacemaker 22.5gm - [id number] - [id number] Implanted:Qty: 1 on 03/17/2022 by Adryan Constantino MD at [facility] Pacemaker [employer] 07/15/2023 [id number] / [id number] / [employer] Capsurefix Novus 6.2fr 2mm 58cm Bipolar Screw In Implantable 5076-58 - [id number] - [id number] Implanted:Qty: 1 on 03/17/2022 by Adryan Constantino MD at [facility] [employer] 10/08/2023 5076-58 / [id number] / [employer] Capsurefix Novus 6.2fr 2mm 52cm Bipolar Screw In Implantable Latex Free 5076-52 - [id number] - [id number] Implanted:Qty: 1 on 03/17/2022 by Adryan Constantino MD at [facility] [employer] 01/15/2024 5076-52 / [id number] / Insurance MEDICARE [facility] [employer] MEDICARE [employer] MEDICARE [facility] Advance Directives For more information, please contact: [phone] * Full Code (Latest Code Status on File) Date Activated Date Inactivated Comments 03/14/2022 12:57 PM 03/19/2022 6:15 PM Care Teams Telephone Lines Repairer Relationship Specialty Start Date End Date Otto Mcpherson MD [address] [place] [address] PCP - General Family Medicine 09/07/19 Adryan Constantino MD [address] [place] [address] Referring Physician Cardiovascular Disease 03/19/22 Lamont Molina MD [address] [place] [address] Consulting Physician Interventional Cardiology 03/19/22
--- OUTSIDE RECORDS SUMMARY | 2024-11-09 20:58 | XMS_ITS | CONTINUITY OF CARE DOCUMENT ---
Author Name jose f kohler Address Unknown Organization [facility] Address [address] [address] [place] [address] Phone [phone] Care Team Providers Care Housekeeping Cleaner Name Role Phone Dougie ROBERTS, Adryan Unavailable [phone] DENIZ ROBERTS, NBA Unavailable NBA GUAMAN MD Unavailable [phone] PROBLEMS Condition Status Date Provider Notes S/P Dual chamb PCM - [employer] ( MRI safe) active Sheridan Bennett RBBB active Chris Correa MD Overweight active Chris Correa MD B12 deficiency active Chris Correa MD IRON DEFICIENCY active Chris Correa MD CHF due to left ventricular systolic dysfunction completed - Adryan Constantino MD Diabetes Mellitus, Type II, controlled w/vascular complications active Cortneydina Hardy [employer] Dizziness active Adryan Constantino MD Diabetes Mellitus, Type II, controlled w/vascular complications completed - Adryan Constantino MD CHF due to left ventricular systolic dysfunction active Adryan Constantino MD COPD active Chris Correa MD Aortic atherosclerosis active Chris Correa MD CAD;neg caroid active Chris Correa MD Granulomatous lung disease active Chris herring MD AV block, 1st degree;NML TSH completed - Chris Correa MD Tobacco use, quit active Chris Correa MD T OO REMOTE TO SCREEN AORTIC VALVE SCLEROSIS;2013 completed - Chris Correa MD DIASTOLIC DYSFUNCTION active Chris Correa MD SLEEP APNEA;MILD, NOT SEVERE ENOUGH FOR CPAP PER PT completed - Chris Correa MD PALPITATIONS;neg tsh completed - Chris Correa MD FAMILY HISTORY OF HEART DISEASE active Chris Correa MD overweight;HAPPY WITH WEIGHT, did not want diet pill active Chris Correa MD TOBACCO ABUSE;NEG CXR 13 completed - Chris Correa MD HTN ESSENTIAL;NEG DUPLEX active Chris call MD Hyperlipidemia active Chris Correa MD DIABETES MELLITUS active ? Chris Correa MD Screening active Chris Correa MD ENCOUNTERS Date Type Provider Location Encounter Diag nosis - In-person encounter Office Visit Naga Stevenson MD [facility] Office - In-person encounter Office Visit Adryan Constantino MD [facility] Diabetes Mellitus, Type II, controlled w/vascular complicationsCHF due to left ventricular systolic dysfunction - In-person encounter Office Visit Adryan Constantino MD [facility] - In-person encounter Office Visit Adryan Constantino MD [facility] - In-person encounter Office Visit Adryan Constantino MD [facility] - In-person encounter Office Visit Adryan Constantino MD [facility] Diabetes Mellitus, Type II, controlled w/vascular complications - In-person encounter Office Visit Adryan Constantino MD [facility] Dizziness - In-person encounter Office Visit Adryan Constantino MD [facility] CHF due to left ventricular systolic dysfunction - In-person encounter Office Visit Adryan Constantino MD [facility] - In-person encounter Office Visit Chris Correa MD [facility] COPD - In-person encounter Office Visit Chris Correa MD [facility] PALPITATIONS;neg tshAV block, 1st degree;NML TSHCOPD - In-person encounter Office Visit Chris Correa MD [facility] Tobacco use, quitCAD;neg caroidAortic atherosclerosis - In-person encounter Office Visit Chris Correa MD [facility] SLEEP APNEA;MILD, NOT SEVERE ENOUGH FOR CPAP PER PTGranulomatous lung diseaseCAD;neg caroid - In-person encounter Office Visit Chris Correa MD [facility] ScreeningHTN ESSENTIAL;NEG DUPLEXDIASTOLIC DYSFUNCTION - In-person encounter Office Visit Chris Correa MD [facility] ScreeningHyperlipidemiaPALPITAT IONS;neg tshAORTIC VALVE SCLEROSIS;2013Tobacco use, quit - In-person encounter Office Visit Chris Correa MD [facility] overweight;HAPPY WITH WEIGHT, did not want diet pill - In-person encounter Office Visit Chris Correa MD [facility] ScreeningHyperlipidemiaPALPITAT IONS;neg tshDIASTOLIC DYSFUNCTION - In-person encounter Office Visit Chris Correa MD [facility] - In-person encounter Office Visit Chris Correa MD [facility] ScreeningDIABETES MELLITUSHyperlipidemiaHTN ESSENTIAL;NEG DUPLEXTOBACCO ABUSE;NEG CXR 13overweight;HAPPY WITH WEIGHT, did not want diet pillFAMILY HISTORY OF HEART DISEASEPALPITATIONS;neg tsh VITAL SIGNS Date Observation Value Provider Body Mass Index (Ratio) 26.17 kg/m2 Naga Stevenson MD blood pressure, diastolic 69 mm[Hg] Tana Teixeira blood pressure, systolic 120 mm[Hg] Ariela Teixeira oxygen saturation, oximetry 94 % Jana Teixeira pulse rate 72 /min Jana Teixeira weight E&M 193 [lb_av] Jana Teixeira respiratory rate E&M 12 /min Jana Teixeira height E&M 72 [in_i] Jana Teixeira blood pressure, cuff size regular An cathryn Teixeira Body Mass Index (Ratio) 26.17 kg/m2 Adryan Constantino MD blood pressure, cuff size regular Ke rri Gruenenfelder blood pressure, diastolic 60 mm[Hg] Ke rri Gruenenfelder blood pressure, systolic 120 mm[Hg] Ker ri Gruenenfelder oxygen saturation, oximetry 96 % Jaja Gruenenfelder respiratory rate E&M 14 /min Jaja G ruenenfelder pulse rate 76 /min Jaja Gruenenfe er weight E&M 193 [lb_av] Jaja Gruenenfe [facility] height E&M 72 [in_i] Jaja Gruenenfe [facility] Body Mass Index (Ratio) 27.53 kg/m2 Judy Norton blood pressure, cuff size regular Ke rri Gruenenfelder blood pressure, diastolic 80 mm[Hg] Ke rri Gruenenfelder blood pressure, systolic 124 mm[Hg] Ker ri Gruenenfelder oxygen saturation, oximetry 95 % Jaja Gruenenfelder respiratory rate E&M 12 /min Jaja G ruenenfelder pulse rate 76 /min Jaja Gruenenfe lder weight E&M 203 [lb_av] Jaja Gruenenfe lder height E&M 72 [in_i] Jaja Gruenenfe lder Body Mass Index (Ratio) 28.07 kg/m2 Adryan Constantino MD blood pressure, diastolic 69 mm[Hg] Olesya nkLogcourtney blood pressure, systolic 122 mm[Hg] Yenni Geraldoogcourtney blood pressure, diastolic 69 mm[Hg] [facility] blood pressure, systolic 122 mm[Hg] [facility] oxygen saturation, oximetry 95 % [facility] pulse rate 70 /min [facility] respiratory rate E&M 16 /min Taylor Enrique gala weight E&M 207 [lb_av] [facility] height E&M 72 [in_i] [facility] Body Mass Index (Ratio) 27.66 kg/m2 Burt Hardy [employer] blood pressure, diastolic 65 mm[Hg] Te ri [place] blood pressure, systolic 108 mm[Hg] Ter i Fong pulse rate 70 /min Gogo Fong respiratory rate E&M 15 /min Gogo Pi [facility] oxygen saturation, oximetry 97 % Gogo Fong weight E&M 204 [lb_av] Gogo Fong Body Mass Index (Ratio) 26.72 kg/m2 Adryan Constantino MD blood pressure, diastolic 71 mm[Hg] Te ri Fong blood pressure, systolic 107 mm[Hg] Ter i Fong oxygen saturation, oximetry 95 % Gogo Fong pulse rate 72 /min Gogo Fong respiratory rate E&M 16 /min Gogo Pi ckett weight E&M 197 [lb_av] Gogo Fong Body Mass Index (Ratio) 27.66 kg/m2 Adryan Constantino MD blood pressure, cuff size large Kristopher Laguerrenfelder blood pressure, diastolic 67 mm[Hg] Ke rri Gruenenfelder blood pressure, systolic 177 mm[Hg] Maninder ri Heideelder oxygen saturation, oximetry 96 % Jaja Jaeegrelder respiratory rate E&M 16 /min Jaja Antonio ruenenfelder pulse rate 70 /min Jaja Heidee lder weight E&M 204 [lb_av] Jaja Vincentnenfe lder height E&M 72 [in_i] Jaja Haritha [facility] Body Mass Index (Ratio) 26.58 kg/m2 Adryan Constantino MD weight E&M 196 [lb_av] Gogo Fong Body Mass Index (Ratio) 28.34 kg/m2 Cata Correa MD blood pressure, diastolic 60 mm[Hg] Eugenia Ha blood pressure, systolic 122 mm[Hg] Lynne Ha oxygen saturation, oximetry 97 % Jorge Ha respiratory rate E&M 18 /min Dustin Ha pulse rate 77 /min Jorge Wagner douglas weight E&M 209 [lb_av] Jorge Bernard douglas height E&M 72 [in_i] Jorge Carline douglas pulse rate 77 /min Erika Janene bazzi blood pressure, diastolic 78 mm[Hg] Cy nora Gomez blood pressure, systolic 142 mm[Hg] Nadine yovanny Gomez height E&M 72 [in_i] Erika Campbel l height in centimeters E&M 182.88 cm Cy nora Gomez Body Mass Index (Ratio) 28.24 kg/m2 Cata Correa MD blood pressure, russo tolic, third observation 81 mm[Hg] Chris Correa MD blood pressure, syst olic, third observation 145 mm[Hg] Chris Correa MD blood pressure, russo tolic, second observation 75 mm[Hg] Chris Correa MD blood pressure, syst olic, second observation 140 mm[Hg] Chris Correa MD blood pressure, diastolic 70 mm[Hg] Keyshawn alvares [place] blood pressure, systolic 130 mm[Hg] Ioana joseph [place] oxygen saturation, oximetry 96 % [facility] respiratory rate E&M 16 /min [facility] pulse rate 78 /min [facility]&M 210 [lb_av] [facility] height E&M 72.3 [in_i] [facility] Body Mass Index (Ratio) 29.26 kg/m2 Cata Correa MD blood pressure, diastolic 79 mm[Hg] Eugenia Hernandez Ha blood pressure, systolic 136 mm[Hg] Lynne Dozier Ha oxygen saturation, oximetry 91 % Jorge Ha respiratory rate E&M 18 /min Dustin Ha pulse rate 89 /min Jorge Wagner roseann weight E&M 217.6 [lb_av] Jorge Tesfaye vanessa height E&M 72.3 [in_i] Jorge Wagner [facility] Body Mass Index (Ratio) 28.91 kg/m2 Cata Correa MD blood pressure, diastolic 72 mm[Hg] Ch astity Chito blood pressure, systolic 120 mm[Hg] Randa stity Chito pulse rate 81 /min Chastity Chito oxygen saturation, oximetry 98 % Chastity Chito respiratory rate E&M 16 /min Chastit y Chito weight E&M 215 [lb_av] Chastity Chito height E&M 72.3 [in_i] [facility] (Ratio) 29.05 kg/m2 Cata Correa MD blood pressure, diastolic 87 mm[Hg] Eugenia Ha blood pressure, systolic 131 mm[Hg] Lynne Ha oxygen saturation, oximetry 97 % Jorge Ha respiratory rate E&M 18 /min Dustin Ha pulse rate 75 /min Jorge cole weight E&M 216 [lb_av] Jorge cole height E&M 72.3 [in_i] Jorge Wagner [facility] Body Mass Index (Ratio) 28.24 kg/m2 Cata Correa MD blood pressure, cuff size regular polo Demecs RN blood pressure, diastolic 66 mm[Hg] polo Demecs RN blood pressure, systolic 140 mm[Hg] [facility] sta Demecs RN oxygen saturation, oximetry 97 % Yuma Demecs RN respiratory rate E&M 18 /min Yuma Demecs RN pulse rate 76 /min Carmen Demecs R N weight E&M 210 [lb_av] Yuma Demecs R N Body Mass Index (Ratio) 28.91 kg/m2 [facility] ta Demecs RN blood pressure, cuff size regular polo Demecs RN blood pressure, diastolic 60 mm[Hg] polo Demecs RN blood pressure, systolic 110 mm[Hg] Sha sta Demecs RN oxygen saturation, oximetry 96 % Yuma Demecs RN respiratory rate E&M 18 /min Yuma Demecs RN pulse rate 83 /min Carmen Demecs R N weight E&M 215 [lb_av] Yuma Demecs R N Body Mass Index (Ratio) 29.32 kg/m2 Cata Correa MD blood pressure, resting Yes Cata Correa MD blood pressure, cuff size regular Isadora Dupont blood pressure, diastolic 90 mm[Hg] Isadora Dupont blood pressure, systolic 130 mm[Hg] Mason Dupont oxygen saturation, oximetry 98 % Rehana Dupont respiratory rate E&M 16 /min Rehana Dupont pulse rate 79 /min Rehana Dupont weight E&M 218 [lb_av] Rehana Dupont height E&M 72.3 [in_i] Rehana Dupont Body Mass Index (Ratio) 29.18 kg/m2 Brad madsen Lewis blood pressure, diastolic 80 mm[Hg] An sheila Lewis blood pressure, systolic 136 mm[Hg] Ane atriduane Lewis pulse rate 62 /min Balbinachase Lewis oxygen saturation, oximetry 97 % Balbinachase Lewis respiratory rate E&M 15 /min Anejovannyi duane Lewis weight E&M 217 [lb_av] Ana Lewis Body Mass Index (Ratio) 29.56 kg/m2 Beti worrell Sonja blood pressure, russo tolic, second observation 68 mm[Hg] Beti Casillas blood pressure, syst olic, second observation 122 mm[Hg] Beti Casillas blood pressure, diastolic 68 mm[Hg] Na dorina Casillas blood pressure, systolic 122 mm[Hg] Maria L sarah Casillas pulse rate 82 /min Beti Casillas oxygen saturation, oximetry 96 % Beti Casillas respiratory rate E&M 17 /min Beti Casillas weight E&M 219 [lb_av] Beti Casillas Body Mass Index (Ratio) 29.70 kg/m2 Roel Kearney NP weight E&M 220.0 [lb_av] Marlene Smithll [employer] blood pressure, diastolic, left arm 68 mm [Hg] Donn Sotoduane VELASQUEZ blood pressure, systolic, left arm 122 mm [Hg] Donn Sotoduane VELASQUEZ blood pressure, diastolic, right arm 78 m m[Hg] Donn Sotoduane VELASQUEZ blood pressure, systolic, right arm 127 m m[Hg] Donn Sotoduane VELASQUEZ blood pressure, diastolic 68 mm[Hg] Octaviano mancia Mcpherson RN blood pressure, systolic 122 mm[Hg] Donn Sotoduane VELASQUEZ pulse rate 78 /min Donn Sotoduane VELASQUEZ oxygen saturation, oximetry 98 % Donn Sotoduane VELASQUEZ respiratory rate E&M 16 /min Donn Horton zoëduane VELASQUEZ Body Mass Index (Ratio) 29.43 kg/m2 Donn Sotoduane VELASQUEZ weight E&M 218 [lb_av] Donn Mcpherson RN height E&M 72.3 [in_i] Donn Mcpherson RN ALLERGIES Allergy Name Onset Date Reaction Criticality Status DUST High Criticality active GRASS High Criticality active RESULTS Date Observation Value Provider Reference Range Interpretation Location hemoglobin A1C, blood, as % of total hemoglobin 7.1 % OF TOTAL HGB [facility] <5.7 High ferritin, serum 163 ng/mL [facility] 20-380 Normal calcium, serum 9.4 mg/dL [facility] 8.6-10.3 Normal carbon dioxide, venous blood 28 mmol/L [facility] 20-32 Normal chloride, serum 105 mmol/L [facility] 98-110 Normal potassium, serum 4.4 mmol/L [facility] 3.5-5.3 Normal sodium, serum 140 mmol/L [facility] 135-146 Normal urea nitrogen/creatinine ratio, serum NOT APPLICABLE (calc) [facility] 6-22 Estimated Glomerular Filtration Rate (calc) 106 mL/min/{1.73_ m2} [facility] > OR = 60 Normal creatinine, serum 0.83 mg/dL [facility] 0.70-1.25 Normal urea nitrogen, blood 18 mg/dL [facility] 7-25 Normal blood glucose, random 167 mg/dL [facility] 65-99 High iron saturation percent, serum 37 % (CALC) [facility] 15-60 Normal iron binding capacity, total 250 MCG/DL (CALC) [facility] 250-425 Normal iron, serum 92 ug/dL [facility] 50-180 Normal cholesterol, non-HDL, total 81 MG/DL (CALC) [facility] <130 Normal cholesterol/HDL ratio, serum, percent 2.8 (calc) [facility] <5.0 Normal LDL cholesterol, serum 65 MG/DL (CALC) [facility] Normal triglyceride, serum, fasting 82 mg/dL [facility] <150 Normal HDL cholesterol, serum 46 mg/dL [facility] >40 Normal cholesterol, serum 127 mg/dL [facility] <200 Normal ferritin, serum 278 ng/mL [facility] 30-400 B-12, serum 446 pg/mL [facility] [phone] prothrombin time (patient) 10.4 s [facility] 9.1-12.0 international normalized ratio (INR) 1.0 [facility] 0.8-1.2 iron saturation percent, serum 31 % [facility] 15-55 iron, serum 85 ug/dL [facility] 38-169 iron binding capacity, unsaturated 188 ug/dL [facility] 100-856 3889/12 /05 iron binding capacity, total 273 ug/dL [facility] 689-578 1544/12 /05 lipoprotein, beta, serum, point, quantitative, calculated 72 mg/dL [facility] 0-99 very low density lipoproteins 22 mg/dL [facility] 5-40 HDL cholesterol, serum 50 mg/dL [facility] >39 triglyceride, serum, random 110 mg/dL [facility] 0-149 cholesterol, serum 144 mg/dL [facility] [phone]/12 /05 calcium, serum 10.0 mg/dL [facility] 8.6-10.2 carbon dioxide, venous blood 27 mmol/L [facility] 18-29 chloride, serum 101 mmol/L [facility] 96-106 potassium, serum 4.5 mmol/L [facility] 3.5-5.2 sodium, serum 141 mmol/L [facility] [phone]/12 /05 urea nitrogen/creatinine ratio, serum 18 [facility] 10-24 eGFR if not 78 mL/min/{1.73_ m2} [facility] >59 creatinine, serum 1.00 mg/dL [facility] 0.76-1.27 urea nitrogen, blood 18 mg/dL [facility] 8-27 blood glucose, random 145 mg/dL [facility] 65-99 High basophil count, absolute 0.0 x10E3/uL [facility] 0.0-0.2 Eosinophil Absolute Count 0.2 X10E3/UL [facility] 0.0-0.4 monocyte count, blood, automated 0.6 X10E3/UL [facility] 0.1-0.9 lymphocyte count, blood, automated 2.0 X10E3/UL [facility] 0.7-3.1 Absolute Neutrophils 2.2 X10E3/UL [facility] 1.4-7.0 basophils as percent of blood leukocytes 0 % [facility] Not Estab. eosinophils as percent of blood leukocytes 4 % [facility] Not Estab. monocytes as percent of blood leukocytes 11 % [facility] Not Estab. lymphocytes as percent of blood leukocytes 40 % [facility] Not Estab. neutrophils as percent of blood leukocytes 45 % [facility] Not Estab. platelet count 253 X10E3/UL [facility] [phone]/12 /05 red blood cell distribution width 13.6 % [facility] 12.3-15.4 mean corpuscular hemoglobin concentration, RBC 33.2 G/DL [facility] 31.5-35.7 mean corpuscular hemoglobin, RBC 33.2 pg [facility] 26.6-33.0 High mean corpuscular volume, RBC 100 fL [facility] 79-97 High hematocrit, blood 43.4 % [facility] 37.5-51.0 hemoglobin, blood 14.4 g/dL [facility] 13.0-17.7 erythrocyte (RBC) count 4.34 X10E6/UL [facility] 4.14-5.80 leukocyte count, blood 4.9 X10E3/UL [facility] 3.4-10.8 albumin/creatinine ratio, urine 4 MG/[facility] creatinine, random, urine 43.07 (?) [facility] microalbumin, urine 2 [facility] 0-30 folate, serum 20.0 NG/MLM [facility] 5.6-45.8 ferritin, serum 371.4 ng/mL [facility] 30.0 - 400.0 red blood cell distribution width, size density 57.1 fL [facility] - immature granulocytes, percentage of total cells, blood 0.4 % [facility] - nucleated red blood cells as percent of blood leukocytes 0.0 % [facility] - red blood cell (erythrocyte) count, per high power field 0.0 10*3/UL [facility] - eosinophils as percent of blood leukocytes 4.1 % [facility] - neutrophils as percent of blood leukocytes 54.0 % [facility] - Absolute Neutrophils 2.8 CELLS/UL [facility] 1.5 - 7.8 basophils as percent of blood leukocytes 0.8 % [facility] - Absolute Basophils 0.0 CELLS/UL [facility] 0.0 - 0.2 monocytes as percent of blood leukocytes 9.8 % [facility] - Absolute Monocytes 0.5 CELLS/UL [facility] 0.2 - 1.0 lymphocytes as percent of blood leukocytes 30.9 % [facility] - Absolute Lymphocytes 1.6 CELLS/UL [facility] 0.9 - 3.9 mean platelet volume 10.9 (?) [facility] - platelet count 221.0 THOUSAND/UL [facility] 100.0 - 400.0 mean corpuscular hemoglobin concentration, RBC 32.6 G/DL [facility] 31.0 - 38.0 mean corpuscular hemoglobin, RBC 33.6 pg [facility] 25.0 - 35.0 mean corpuscular volume, RBC 102.8 fL [facility] 75.0 - 100.0 High hematocrit, blood 43.8 % [facility] 35.0 - 55.0 hemoglobin, blood 14.3 g/dL [facility] 11.5 - 16.5 erythrocyte count, whole blood 4.3 MILLION/UL [facility] 3.5 - 5.5 iron, serum 73.0 ug/dL [facility] 31.0 - 144.0 iron saturation percent, serum 25.7 % [facility] 20.0 - 50.0 iron binding capacity, total 284.2 ug/dL [facility] 250.0 - 450.0 vitamin b12, serum 252.5 pg/mL [facility] 211.0 - 946.0 free thyroxine index 5.2 ??g/dL [facility] 4.4 - 11.4 triiodothyronine uptake 1.1 TBI [facility] 0.8 - 1.3 thyroxine, serum, total 5.7 ??G/DL [facility] 4.5 - 11.7 thyroid stimulating hormone, serum 1.380 ??IU/ML [facility] 0.270 - 4.200 pro brain natriuretic peptide 43.4 pg/mL [facility] 0.0 - 125.0 very low density lipoproteins 22.6 mg/dL [facility] 5.0 - 40.0 LDL/HDL (low-density lipoprotein/high-de nsity lipoprotein) ratio 1.3 RATIO [facility] - lipoprotein, beta, serum, point, quantitative, calculated 63.4 (?) [facility] 0.0 - 100.0 HDL cholesterol, serum 49.0 mg/dL [facility] 35.0 - 55.0 cholesterol, serum 135.0 mg/dL [facility] 0.0 - 200.0 triglyceride, serum, fasting 113.0 mg/dL [facility] 0.0 - 150.0 ferritin, serum 44.5 ng/mL [facility] 30.0 - 400.0 anion gap, serum 10.6 [facility] - albumin/globulin ratio, serum 2.3 g/dL [facility] 1.1 - 2.5 globulin, serum 2.0 [facility] 2.3 - 3.8 Low urea nitrogen/creatinine ratio, serum 15.6 [facility] - Estimated Glomerular Filtration Rate (calc) 89.7 (?) [facility] 59.0 - chloride, serum 102.4 mmol/L [facility] 98.0 - 107.0 potassium, serum 4.1 mmol/L [facility] 3.5 - 5.1 sodium, serum 140.0 mmol/L [facility] 136.0 - 145.0 creatinine, serum 0.9 mg/dL [facility] 0.7 - 1.2 carbon dioxide, venous blood 27.0 mmol/L [facility] 23.0 - 31.0 albumin, serum 4.6 g/dL [facility] 3.5 - 5.2 calcium, serum 9.3 mg/dL [facility] 8.6 - 10.2 aspartate aminotransferase (SGOT), serum 22.0 1/L [facility] 0.0 - 40.0 alkaline phosphatase, serum 68.0 1/L [facility] 40.0 - 130.0 alanine aminotransferase (SGPT), serum 31.0 1/L [facility] 0.0 - 41.0 protein, total, serum 6.6 g/dL [facility] 6.6 - 8.7 bilirubin, serum, total 0.3 mg/dL [facility] 0.0 - 1.2 urea nitrogen, blood 14.0 mg/dL [facility] 8.0 - 23.0 blood glucose, random 154.0 mg/dL [facility] 74.0 - 99.0 High red blood cell distribution width, size density 52.5 fL [facility] - immature granulocytes, percentage of total cells, blood 0.2 % [facility] - nucleated red blood cells as percent of blood leukocytes 0.0 % [facility] - red blood cell (erythrocyte) count, per high power field 0.0 10*3/UL [facility] - eosinophils as percent of blood leukocytes 5.4 % [facility] - neutrophils as percent of blood leukocytes 43.3 % [facility] - Absolute Neutrophils 1.9 CELLS/UL [facility] 1.5 - 7.8 basophils as percent of blood leukocytes 0.9 % [facility] - Absolute Basophils 0.0 CELLS/UL [facility] 0.0 - 0.2 monocytes as percent of blood leukocytes 10.3 % [facility] - Absolute Monocytes 0.5 CELLS/UL [facility] 0.2 - 1.0 lymphocytes as percent of blood leukocytes 39.9 % [facility] - Absolute Lymphocytes 1.8 CELLS/UL [facility] 0.9 - 3.9 mean platelet volume 10.9 (?) [facility] - platelet count 242.0 THOUSAND/UL [facility] 100.0 - 400.0 mean corpuscular hemoglobin concentration, RBC 32.6 G/DL [facility] 31.0 - 38.0 mean corpuscular hemoglobin, RBC 32.9 pg [facility] 25.0 - 35.0 mean corpuscular volume, RBC 101.0 fL [facility] 75.0 - 100.0 High hematocrit, blood 40.2 % [facility] 35.0 - 55.0 hemoglobin, blood 13.1 g/dL [facility] 11.5 - 16.5 erythrocyte count, whole blood 4.0 MILLION/UL [facility] 3.5 - 5.5 iron, serum 72.0 ug/dL [facility] 31.0 - 144.0 iron saturation percent, serum 21.0 % [facility] 20.0 - 50.0 iron binding capacity, total 343.0 ug/dL [facility] 250.0 - 450.0 TOTAL NON-HDL-C (LDL VLDL) 85 [facility] alanine aminotransferase (SGPT), serum 28 1/L [facility] aspartate aminotransferase (SGOT), serum 22 1/L [facility] cholesterol/HDL ratio, serum 2.7 [facility] cholesterol, serum 134 mg/dL [facility] triglyceride, target level 150 mg/dL [facility] HDL cholesterol, serum, target level 40 mg/dL [facility] triglyceride, serum, fasting 55 mg/dL [facility] Normal HDL cholesterol, serum 50 mg/dL [facility] Normal LDL cholesterol, serum 74 mg/dL [facility] Normal LDL target level 100 mg/dL [facility] cholesterol, target level 200 mg/dL [facility] platelet count 189 10*3/mm3 Serafin Negron hematocrit, blood 41.3 % Serafin Negron thyroid stimulating hormone, serum 1.44 u[IU]/mL [facility] alanine aminotransferase (SGPT), serum 26 1/L [facility] aspartate aminotransferase (SGOT), serum 18 1/L [facility] creatinine, serum 0.92 mg/dL [facility] potassium, serum 4.3 mmol/L [facility] sodium, serum 140 mmol/L [facility] triglyceride, serum, fasting 166 mg/dL [facility] HDL cholesterol, serum 50 mg/dL [facility] LDL cholesterol, serum 78 mg/dL [facility] cholesterol, serum 161 mg/dL [facility] HISTORY OF MEDICATION USE Medication Status Instructions Dates Provider Indications Com yandel Solorzano Ellipjakub 100-62.5-25 mcg blister with device active Jaja Whiteside montelukast 10 mg tablet active Take 1 tablet by mouth once daily Jaja Whiteside atorvastatin 20 mg tablet active TAKE 1 TABLET BY MOUTH DAILY Rubi Rushidigna atorvastatin 20 mg tablet completed TAKE 1 TABLET BY MOUTH DAILY - [facility] Entresto 49-51 mg tablet active 1 tablet by mouth twice a day Adryan Constantino MD carvedilol 25 mg tablet active Take 1 tablet by mouth twice a day Adryan Constantino MD cyanocobalamin (vitamin B-12) 1,000 mcg tablet completed 1 tablet once a day - Jaja Whiteside Jardiance 25 mg tablet active 1 tablet once a day Jorge Ha ONGLYZA 5 MG ORAL TABLET completed daily - Jorge Ha Flomax 0.4 mg capsule active once a day Carmenza Dale VITAMIN B-12 1000 MCG ORAL TABLET completed One tablet daily - Jorge Ha ALLERGY 10 MG ORAL TABLET completed once a day - Jaja Whiteside JANUVIA 100 MG ORAL TABLET completed take once a day - Chris Correa MD finasteride 5 mg tablet active Take once a day Adryan Constantino MD WELCHOL 3.75 GM ORAL PACKET completed ONCE DAILY - Rehana Dupont FLOMAX 0.4 MG ORAL CAPSULE completed ONCE DAILY - Rehana Dupont atorvastatin 80 mg tablet completed Take 1 tablet by mouth once a day - Adryan Constantino MD IBUPROFEN CAPSULE completed 2 at - Ana Saucedo carvedilol 3.125 mg tablet completed 1 tablet twice a day - Chris Correa MD LEXAPRO 10 MG ORAL TABLET completed daily - Ana Saucedo metformin 1,000 mg tablet active 1 tablet twice a day Jaja Whiteside RAPAFLO 8 MG ORAL CAPSULE completed daily - Ana Saucedo CLARITIN 10 MG ORAL TABLET completed daily - Ana Saucedo omeprazole 40 mg capsule,delayed release(DR/EC) active once a day Donn Mcpherson RN aspirin 81 mg tablet,delayed release (DR/EC) active 1 tablet by mouth once a day Chris Correa MD glipizide 5 mg tablet active Take 1 tablet by mouth twice a day Jaja Whiteside MULTIVITAMINS ORAL CAPSULE active 1 tablet once a day Donn Mcpherson RN SOCIAL HISTORY Date Observation Value Provider drug use no Naga Stevenson MD alcohol use no Naga Stevenson MD passive cigarette sm eusebio exposure no Naga Stevenson MD smoking status Former smoker Naga Stevenson MD drug use no Adryan Constantino MD alcohol use no Adryan Constantino MD passive cigarette sm eusebio exposure no Adryan Constantino MD smoking status Former smoker Adryan Constantino MD seatbelt usage 100 % Taylor Parsons caffeine use, averag e drinks per day 4+ Taylor Issa passive cigarette sm eusebio exposure no Taylor Issa smoking status Former smoker Taylor Parsons seatbelt usage 100 % Gogobradley Fong caffeine use, averag e drinks per day 4+ Gogo Fong drug use no Gogo Fong alcohol use no Gogo Fong smoking status Former smoker Cortney mujica [employer]PERATIONS PL[employer]NER passive cigarette sm eusebio exposure no Adryan Constantino MD smoking status Former smoker Adryan Constantino MD social history reviewed E&M revi ewed - no changes required Adryan Constantino MD social history E&M Marital Statu s: Smoking History: P ollie has never smoked. Adryan Constantino MD caffeine use, averag e drinks per day yes Adryan Constantino MD drug use no Gogo Fong alcohol use no Gogo Fong caffeine use, averag e drinks per day yes Jaja Whiteside passive cigarette sm eusebio exposure no Jaja Whiteside smoking status Former smoker Jaja Navarrolele gibbs social history E&M Marital Statu s: Smoking History: P atgenesis is a former smoker. Adryan Constantino MD passive cigarette sm eusebio exposure no Adryan Constantino MD smoking status Former smoker Adryan Constantino MD social history reviewed E&M revi ewed - no changes required Adryan Constantino MD caffeine use, averag e drinks per day yes Adryan Constantino MD social history E&M Marital Statu s: Smoking History: Sophia levin is a former smoker. Chris Correa MD social history reviewed E&M revi ewed - no changes required Chris Correa MD alcohol use no Jorge Wagner nson caffeine use, averag e drinks per day yes Jorge Ha drug use no Jorge Wagner nsroseann passive cigarette sm eusebio exposure no Jorge Ha smoking status Former smoker Jorge Bowers social history E&M Marital Statu s: Smoking History: P ollie is a former smoker. Chris Correa MD social history reviewed E&M revi ewed - no changes required Chris Correa MD number of grandchildren Chris Correa MD Tahmina Vergara alcohol use no Tahmina Vergara caffeine use, averag e drinks per day yes [place] Vergara drug use no [place] Vergara passive cigarette sm eusebio exposure no Tahmina Vergara smoking status Former smoker [facility] social history E&M Marital Statu s: Smoking History: Sophia levin is a former smoker. Chris Correa MD social history reviewed E&M revi ewed - no changes required Chris Correa MD alcohol use no Jorge Wagner nsroseann caffeine use, averag e drinks per day yes Jorge Ha drug use no Jorge Wagner nsroseann passive cigarette sm eusebio exposure no Jorge Ha smoking status Former smoker Jorge Bowers social history E&M Marital Statu s: Smoking History: Sophia levin is a former smoker. Chris Correa MD social history reviewed E&M revi ewed - no changes required Chris Correa MD alcohol use no Chastity Chito caffeine use, averag e drinks per day yes Chastity Chito drug use no Chastity Chito passive cigarette sm eusebio exposure no Chastity Chito smoking status Former smoker Chastity Hog ue social history E&M Marital Statu s: Smoking History: Sophia levin is a former smoker. Chris Correa MD social history reviewed E&M i ewed - no changes required Chris Correa MD alcohol use no Jorge kahnon caffeine use, averag e drinks per day yes Jorge Ha drug use no Jorge kahnon passive cigarette sm eusebio exposure no Jorge Ha smoking status Former smoker Jorge Bowers social history E&M Marital Statu s: Smoking History: Sophia levin is a former smoker. Chris Correa MD social history reviewed E&M iam ewed - no changes required Chris Correa MD alcohol use no Rehana Dupont caffeine use, averag e drinks per day yes Rehana Dpuont drug use no Rehana Dupont passive cigarette sm eusebio exposure no Rehana Dupont smoking status Former smoker Rehana Cresencio smoking/tobacco cess ation, patient education and counseling yes Chris Correa MD social history reviewed E&M iam ewed - no changes required Chris Correa MD caffeine use, averag e drinks per day yes Ana Saucedo drug use no Ana Saucedo passive cigarette sm eusebio exposure no Ana Saucedo smoking status Former smoker Ana doran quit smoking, stage quit Chris cottrell MD social history reviewed E&M reviewed Donn Mcpherson RN quit smoking, stage quit Chris cottrell MD drug use no Donn Mcpherson RN passive cigarette sm eusebio exposure no Donn Mcpherson RN smoking history, tot al pack/year 42 Donn Mcpherson RN smoking, year quit 1994 Donn zepeda RN social history E&M Marital Status: Marrie d Donn Mcpherson RN caffeine use, averag e drinks per day yes Donn Mcpherson RN smoking status former smoker Donn Sultana N social history reviewed E&M reviewed Donn Mcpherson RN FUNCTIONAL STATUS Date Observation Value Provider HRA, CV Assess/Plan, Angina (inactive) Management Plan continue current therapy Naga Stevenson MD HRA, CV Assess/Plan, Angina (inactive) Management Plan continue current therapy Adryan Constantino MD HRA, CV Assess/Plan, Angina (inactive) Management Plan continue current therapy Adryan Constantino MD HRA, CV Assess/Plan, Angina (inactive) Management Plan continue current therapy Adryan Constantino MD HRA, CV Assess/Plan, Angina (inactive) Management Plan continue current therapy Chris Correa MD HRA, CV Assess/Plan, Angina (inactive) Management Plan continue current therapy Chris Correa MD HRA, CV Assess/Plan, Angina (inactive) Management Plan continue current therapy Chris Correa MD HRA, CV Assess/Plan, Angina (inactive) Management Plan continue current therapy Chris Correa MD MENTAL STATUS Date Observation Value Provider assessment of judgme nt and insight E&M Alert and oriented to time, place and person. Mood and affect are normal. Donn Mcpherson RN assessment of judgme nt and insight E&M Alert and oriented to time, place and person. Mood and affect are normal. Donn Mcpherson RN FAMILY HISTORY Family Member Condition Father MO male <55 Mother MO female <65 Mother Family History of Co ronary Artery Disease: Father Family History of Co ronary Artery Disease: INSURANCE PROVIDERS Payer name Policy type / Coverage type Tomasz red republican ID [facility] MEDICARE TRUST Commercial insurance co radhany [facility] MEDICARE TRUST [facility] [id number] [place] MEDICARE PART B Medicare [id number] ADVANCE DIRECTIVES Name Date DISCUSSED - NO DECISION MADE TREATMENT PLAN Date Name Performer [id number],C,o n statins H is updated medication list for this problem includes: Atorvastatin 20 Mg Tablet (Atorvastatin) ..... Take 1 tablet by mouth daily Adryan Constantino MD [id number],C,w ell controlled H is updated medication list for this problem includes: Carvedilol 25 Mg Tablet (Carvedilol) ..... Take 1 tablet by mouth twice a day Aspirin 81 Mg Tablet,delayed Release (dr/ec) (Aspirin) ..... 1 tablet by mouth once a day Adryan Constantino MD [id number],C,I mproved M onitoring weight, salt and fluid intake stressed O n GDMT Adryan Constantino MD [id number],C,B P 108/65 today, controlled H is updated medication list for this problem includes: Carvedilol 25 Mg Tablet (Carvedilol) ..... Take 1 tablet by mouth twice a day Aspirin 81 Mg Tablet,delayed Release (dr/ec) (Aspirin) ..... 1 tablet by mouth once a day Cortney Nalluri [employer]PERATIONS PL[employer]NER [id number],C, O n statins H is updated medication list for this problem includes: Atorvastatin 20 Mg Tablet (Atorvastatin) ..... Take 1 tablet by mouth daily Cortney Nalluri [employer]PERATIONS PL[employer]NER [id number],C, Cortney Nalluri [employer]PERATIONS PL[employer]NER [id number],C, c ath 30% lad 17 s core 87, neg nuc 17, pos stres 13, ch ol controlled, on asa, no sxs, His updated medication list for this problem includes: Carvedilol 25 Mg Tablet (Carvedilol) ..... Take 1 tablet by mouth twice a day Aspirin 81 Mg Tablet,delayed Release (dr/ec) (Aspirin) ..... 1 tablet by mouth once a day Cortney Nalluri [employer]PERATIONS PL[employer]NER [id number],C, H is updated medication list for this problem includes: Aspirin 81 Mg Tablet,delayed Release (dr/ec) (Aspirin) ..... 1 tablet by mouth once a day Carvedilol 12.5 Mg Tablet (Carvedilol) ..... Take 1 tablet by mouth twice a day [id number], O n GDMT W ell compensated T pankaj half tablet of Carvedilol BID to get BP up. M onitoring weight, salt and fluid intake stressed Cortney Cleopatraluri [employer]PERATIONS PLANNER [id number],C,m kendal per PCP H is updated medication list for this problem includes: Entresto 49-51 Mg Tablet (Sacubitril-valsartan) ..... 1 tablet by mouth twice a day take 1 tablet by mouth twice daily Jardiance 25 Mg Tablet (Empagliflozin) ..... 1 tablet once a day Glipizide 5 Mg Tablet (Glipizide) ..... Twice a day Metformin 500 Mg Tablet (Metformin) ..... 2 tablet twice a day Aspirin 81 Mg Tablet,delayed Release (dr/ec) (Aspirin) ..... 1 tablet by mouth once a day [facility] Nalluri [employer]PERATIONS PLANNER [id number],C,[facility] dizzin ess [id number],F rom orthostatic hypotension as with change in position A void dehydration D ecrease coreg dose E lastic stocking Adryan Constantino MD [id number],S,P CP managing T he following medications were removed from the medication list: H is updated medication list for this problem includes: Entresto 49-51 Mg Tablet (Sacubitril-valsartan) ..... 1 tablet by mouth twice a day take 1 tablet by mouth twice daily Losartan 50 Mg Tablet (Losartan) ..... Take 1 tablet once a day Jardiance 25 Mg Tablet (Empagliflozin) ..... 1 tablet once a day Glipizide 5 Mg Tablet (Glipizide) ..... Twice a day Metformin 500 Mg Tablet (Metformin) ..... 2 tablet twice a day Aspirin 81 Mg Tablet,delayed Release (dr/ec) (Aspirin) ..... 1 tablet by mouth once a day Adryan Constantino MD [id number],S, O n statins H is updated medication list for this problem includes: Atorvastatin 20 Mg Tablet (Atorvastatin) ..... Take 1 tablet by mouth daily Adryan Constantino MD [id number],W,B P is low. Stay hydrated and take half tablet Carvedilol BID. B P today: 107/71 P rior BP: 177/67 (06/01/2022) Prior 10 Yr Risk Heart Disease: 9 % (08/09/2013) & #13;Labs Reviewed: C reat: 0.83 (08/12/2018) C hol: 127 (08/12/2018) HDL: 46 (08/12/2018) LDL: 65 MG/DL (CALC) (08/12/2018) T (08/12/2018) His updated medication list for this problem includes: Carvedilol 25 Mg Tablet (Carvedilol) ..... Take 1 tablet by mouth twice a day Losartan 50 Mg Tablet (Losartan) ..... Take 1 tablet once a day Aspirin 81 Mg Tablet,delayed Release (dr/ec) (Aspirin) ..... 1 tablet by mouth once a day Adryan Constantino MD [id number],S, O n GDMT W ell compensated T pankaj half tablet of Carvedilol BID to get BP up. M onitoring weight, salt and fluid intake stressed Adryan Constantino MD [id number],C,O n statins H is updated medication list for this problem includes: Atorvastatin 20 Mg Tablet (Atorvastatin) ..... Take 1 tablet by mouth daily Adryan Constantino MD [id number],C,w ell controlled H is updated medication list for this problem includes: Carvedilol 25 Mg Tablet (Carvedilol) ..... Take 1 tablet by mouth twice a day Losartan 50 Mg Tablet (Losartan) ..... Take 1 tablet once a day Aspirin 81 Mg Tablet,delayed Release (dr/ec) (Aspirin) ..... 1 tablet by mouth once a day Adryan Constantino MD [id number],C,O n GDMT W ell compensated I ncrease coreg to 25 mg BID, entresto to 49/51 M onitoring weight, salt and fluid intake stressed Adryan Constantino MD [id number],S, H is updated medication list for this problem includes: Aspirin 81 Mg Tablet,delayed Release (dr/ec) (Aspirin) ..... 1 tablet by mouth once a day Carvedilol 12.5 Mg Tablet (Carvedilol) ..... Take 1 tablet by mouth twice a day Adryan Constantino MD [id number],C, c ath 30% lad 17 s core 87, neg nuc 17, pos stres 13, ch ol controlled, on asa, no sxs, Adryan Constantino MD [id number],S, H is updated medication list for this problem includes: Losartan 50 Mg Tablet (Losartan) ..... Take 1 tablet once a day Aspirin 81 Mg Tablet,delayed Release (dr/ec) (Aspirin) ..... 1 tablet by mouth once a day Carvedilol 12.5 Mg Tablet (Carvedilol) ..... Take 1 tablet by mouth twice a day Adryan Constantino MD [id number],S, H is updated medication list for this problem includes: Atorvastatin 20 Mg Tablet (Atorvastatin) ..... Take 1 tablet by mouth daily Adryan Constantino MD Cardiology:This visi t has been a part of the consistent, comprehensive, and ongoing management of the chronic medical condition(s) listed above for the patient. His updated medication list for this problem includes: Atorvastatin 20 Mg Tablet (Atorvastatin) ..... Take 1 tablet by mouth daily Naga Stevenson MD Cardiology:This visi t has been a part of the consistent, comprehensive, and ongoing management of the chronic medical condition(s) listed above for the patient. BP today: 120/69 P rior BP: 120/60 (06/08/2024) Prior 10 Yr Risk Heart Disease: 9 % (08/09/2013) Labs Reviewed: C reat: 0.83 (08/12/2018) C hol: 127 (08/12/2018) HDL: 46 (08/12/2018) LDL: 65 MG/DL (CALC) (08/12/2018) T (08/12/2018) His updated medication list for this problem includes: Carvedilol 25 Mg Tablet (Carvedilol) ..... Take 1 tablet by mouth twice a day Aspirin 81 Mg Tablet,delayed Release (dr/ec) (Aspirin) ..... 1 tablet by mouth once a day Naga Stevenson MD Cardiology Naga Stevenson MD Cardiology Naga Stevenson MD Cardiology:Pt denies SOB and CP. Pt is feeling well. Pt cleared for orthopedic surgery. Naga Stevenson MD Cardiology: o rthostatic dizziness a dvised to stand slowly and wait a few seconds before moving Adryan Constantino MD Cardiology:on statin s T his visit has been a part of consistent, comprehensive, and ongoing medical management of the chronic medical condition(s) listed above for the patient His updated medication list for this problem includes: Atorvastatin 20 Mg Tablet (Atorvastatin) ..... Take 1 tablet by mouth daily Adryan Constantino MD Cardiology: B P today: 120/60 P rior BP: 124/80 (11/29/2023) T his visit has been a part of consistent, comprehensive, and ongoing medical management of the chronic medical condition(s) listed above for the patient His updated medication list for this problem includes: Carvedilol 25 Mg Tablet (Carvedilol) ..... Take 1 tablet by mouth twice a day Aspirin 81 Mg Tablet,delayed Release (dr/ec) (Aspirin) ..... 1 tablet by mouth once a day dAryan Constantino MD Cardiology: E F 45% O n GDMT N o symptoms at present T his visit has been a part of consistent, comprehensive, and ongoing medical management of the chronic medical condition(s) listed above for the patient Adryan Constantino MD Cardiology: t reat medically P revention / risk reduction of CAD based on AHA/ACC guidelines involving Smoking, Blood Pressure control, Lipid management, Physical activity, Weight management, Diabetes management, use of antiplatelet / anticoagulant agents, Renin Angiotensin-aldosterone system blockers, beta blockers, and compliance with medications discussed with patient. T his visit has been a part of consistent, comprehensive, and ongoing medical management of the chronic medical condition(s) listed above for the patient H is updated medication list for this problem includes: Carvedilol 25 Mg Tablet (Carvedilol) ..... Take 1 tablet by mouth twice a day Aspirin 81 Mg Tablet,delayed Release (dr/ec) (Aspirin) ..... 1 tablet by mouth once a day Adryan Constantino MD Cardiology:EF 45% O n GDMT N o symptoms at present R epeat Echo Adryan Constantino MD Cardiology:treat med ically P revention / risk reduction of CAD based on AHA/ACC guidelines involving Smoking, Blood Pressure control, Lipid management, Physical activity, Weight management, Diabetes management, use of antiplatelet / anticoagulant agents, Renin Angiotensin-aldosterone system blockers, beta blockers, and compliance with medications discussed with patient. His updated medication list for this problem includes: Carvedilol 25 Mg Tablet (Carvedilol) ..... Take 1 tablet by mouth twice a day Aspirin 81 Mg Tablet,delayed Release (dr/ec) (Aspirin) ..... 1 tablet by mouth once a day Adryan Constantino MD Cardiology:on statin s H is updated medication list for this problem includes: Atorvastatin 20 Mg Tablet (Atorvastatin) ..... Take 1 tablet by mouth daily Adryan Constantino MD Cardiology:well cont rolled H is updated medication list for this problem includes: Carvedilol 25 Mg Tablet (Carvedilol) ..... Take 1 tablet by mouth twice a day Aspirin 81 Mg Tablet,delayed Release (dr/ec) (Aspirin) ..... 1 tablet by mouth once a day Adryan Constantino MD Cardiology:Improved M onitoring weight, salt and fluid intake stressed O n GDMT Adryan Constantino MD Cardiology:BP 108/65 today, controlled H is updated medication list for this problem includes: Carvedilol 25 Mg Tablet (Carvedilol) ..... Take 1 tablet by mouth twice a day Aspirin 81 Mg Tablet,delayed Release (dr/ec) (Aspirin) ..... 1 tablet by mouth once a day Cortney Nalluri [employer]PERATIONS PL[employer]NER Cardiology: O n statins H is updated medication list for this problem includes: Atorvastatin 20 Mg Tablet (Atorvastatin) ..... Take 1 tablet by mouth daily [facility] Cardiology [facility] Cardiology: c ath 30% lad 17 s core 87, neg nuc 17, pos stres 13, ch ol controlled, on asa, no sxs, His updated medication list for this problem includes: Carvedilol 25 Mg Tablet (Carvedilol) ..... Take 1 tablet by mouth twice a day Aspirin 81 Mg Tablet,delayed Release (dr/ec) (Aspirin) ..... 1 tablet by mouth once a day [facility] Cardiology: H is updated medication list for this problem includes: Aspirin 81 Mg Tablet,delayed Release (dr/ec) (Aspirin) ..... 1 tablet by mouth once a day Carvedilol 12.5 Mg Tablet (Carvedilol) ..... Take 1 tablet by mouth twice a day [facility] Cardiology: O n GDMT W ell compensated T pankaj half tablet of Carvedilol BID to get BP up. M onitoring weight, salt and fluid intake stressed [facility] Cardiology:manage pe r PCP H is updated medication list for this problem includes: Entresto 49-51 Mg Tablet (Sacubitril-valsartan) ..... 1 tablet by mouth twice a day take 1 tablet by mouth twice daily Jardiance 25 Mg Tablet (Empagliflozin) ..... 1 tablet once a day Glipizide 5 Mg Tablet (Glipizide) ..... Twice a day Metformin 500 Mg Tablet (Metformin) ..... 2 tablet twice a day Aspirin 81 Mg Tablet,delayed Release (dr/ec) (Aspirin) ..... 1 tablet by mouth once a day [facility] Cardiology:Denies dizziness [facility] [employer] Cardiology:From orth ostatic hypotension as with change in position A void dehydration D ecrease coreg dose E lastic stocking Adryan Constantino MD Cardiology:PCP stephanie henry T he following medications were removed from the medication list: H is updated medication list for this problem includes: Entresto 49-51 Mg Tablet (Sacubitril-valsartan) ..... 1 tablet by mouth twice a day take 1 tablet by mouth twice daily Losartan 50 Mg Tablet (Losartan) ..... Take 1 tablet once a day Jardiance 25 Mg Tablet (Empagliflozin) ..... 1 tablet once a day Glipizide 5 Mg Tablet (Glipizide) ..... Twice a day Metformin 500 Mg Tablet (Metformin) ..... 2 tablet twice a day Aspirin 81 Mg Tablet,delayed Release (dr/ec) (Aspirin) ..... 1 tablet by mouth once a day Adryan Constantino MD Cardiology: O n statins H is updated medication list for this problem includes: Atorvastatin 20 Mg Tablet (Atorvastatin) ..... Take 1 tablet by mouth daily Adryan Constantino MD Cardiology:BP is low . Stay hydrated and take half tablet Carvedilol BID. B P today: 107/71 P rior BP: 177/67 (06/01/2022) Prior 10 Yr Risk Heart Disease: 9 % (08/09/2013) Labs Reviewed: C reat: 0.83 (08/12/2018) C hol: 127 (08/12/2018) HDL: 46 (08/12/2018) LDL: 65 MG/DL (CALC) (08/12/2018) T (08/12/2018) His updated medication list for this problem includes: Carvedilol 25 Mg Tablet (Carvedilol) ..... Take 1 tablet by mouth twice a day Losartan 50 Mg Tablet (Losartan) ..... Take 1 tablet once a day Aspirin 81 Mg Tablet,delayed Release (dr/ec) (Aspirin) ..... 1 tablet by mouth once a day Adryan Constantino MD Cardiology: O n GDMT W laila cantu T pankaj half tablet of Carvedilol BID to get BP up. M onitoring weight, salt and fluid intake stressed Adryan Constantino MD Cardiology:On statin s H is updated medication list for this problem includes: Atorvastatin 20 Mg Tablet (Atorvastatin) ..... Take 1 tablet by mouth daily Adryan Constantino MD Cardiology:well cont rolled H is updated medication list for this problem includes: Carvedilol 25 Mg Tablet (Carvedilol) ..... Take 1 tablet by mouth twice a day Losartan 50 Mg Tablet (Losartan) ..... Take 1 tablet once a day Aspirin 81 Mg Tablet,delayed Release (dr/ec) (Aspirin) ..... 1 tablet by mouth once a day Adryan Constantino MD Cardiology:On GDMT W ell compensated I ncrease coreg to 25 mg BID, entresto to 49/51 M onitoring weight, salt and fluid intake stressed Adryan Constantino MD Cardiology: H is updated medication list for this problem includes: Aspirin 81 Mg Tablet,delayed Release (dr/ec) (Aspirin) ..... 1 tablet by mouth once a day Carvedilol 12.5 Mg Tablet (Carvedilol) ..... Take 1 tablet by mouth twice a day Adryan Constantino MD Cardiology: c ath 30% lad 17 s core 87, neg nuc 17, pos stres 13, ch ol controlled, on asa, no sxs, Adryan Constantino MD Cardiology: H is updated medication list for this problem includes: Losartan 50 Mg Tablet (Losartan) ..... Take 1 tablet once a day Aspirin 81 Mg Tablet,delayed Release (dr/ec) (Aspirin) ..... 1 tablet by mouth once a day Carvedilol 12.5 Mg Tablet (Carvedilol) ..... Take 1 tablet by mouth twice a day Adryan Constantino MD Cardiology: H is updated medication list for this problem includes: Atorvastatin 20 Mg Tablet (Atorvastatin) ..... Take 1 tablet by mouth daily Adryan Constantino MD Cardiology: N ML TSH, NML UACRT AND TELE n eg aaa and caroid n eg sleep study, nml folate with macro NEG CXR PER PT, NEG NUC 17, NML PRO, NML VIT D Chris Correa MD Cardiology Chris Correa MD Cardiology Chris Correa MD Cardiology: H is updated medication list for this problem includes: Losartan Potassium 50 Mg Oral Tablet (Losartan potassium) ..... Take one tablet daily Aspirin Adult Low Dose 81 Mg Oral Tablet Delayed Release (Aspirin) ..... One tab by mouth daily Carvedilol 3.125 Mg Oral Tablet (Carvedilol) ..... One tab twice daily Chris Correa MD Cardiology Chris Correa MD Cardiology: c ath 30% lad 17 s core 87, neg nuc 17, pos stres 13, ch ol controlled, on asa, no sxs, Chris Correa MD Cardiology Chris Correa MD Cardiology: H is updated medication list for this problem includes: Atorvastatin Calcium 80 Mg Oral Tablet (Atorvastatin calcium) ..... One tab daily C HOL: 127 (08/12/2018) LDL: 65 MG/DL (CALC) (08/12/2018) HDL: 46 (08/12/2018) T (08/12/2018) C HOL (goal): 200 (08/09/2013) LDL (goal): 100 (08/09/2013) HDL (goal): 40 (08/09/2013) TG (goal): 150 (08/09/2013) Chris Correa MD Cardiology:mild Chris Correa MD Cardiology: f eels beter and numers better post in fusion, upto date with colon Chris Correa MD Cardiology:7.1 T he following medications were removed from the medication list: Onglyza 5 Mg Oral Tablet (Saxagliptin hcl) ..... Daily His updated medication list for this problem includes: Jardiance 25 Mg Oral Tablet (Empagliflozin) ..... 1 tab once daily Losartan Potassium 50 Mg Oral Tablet (Losartan potassium) ..... Take one tablet daily Glipizide 5 Mg Oral Tablet (Glipizide) ..... Twice a day Aspirin Adult Low Dose 81 Mg Oral Tablet Delayed Release (Aspirin) ..... One tab by mouth daily Metformin Hcl 500 Mg Oral Tablet (Metformin hcl) ..... 2 tabs twice daily Labs Reviewed: H gBA1c: 7.1 % OF TOTAL HGB (08/12/2018) Creat: 0.83 (08/12/2018) Chris Correa MD Cardiology: H is updated medication list for this problem includes: Onglyza 5 Mg Oral Tablet (Saxagliptin hcl) ..... Daily Losartan Potassium 100 Mg Oral Tablet (Losartan potassium) ..... Take one tablet daily Glipizide 5 Mg Oral Tablet (Glipizide) ..... Twice a day Aspirin Adult Low Dose 81 Mg Oral Tablet Delayed Release (Aspirin) ..... One tab by mouth daily Metformin Hcl 500 Mg Oral Tablet (Metformin hcl) ..... 2 tabs twice daily Labs Reviewed: C reat: 1.00 (09/21/2017) Chris Correa MD Cardiology: H is updated medication list for this problem includes: Atorvastatin Calcium 80 Mg Oral Tablet (Atorvastatin calcium) ..... One tab daily C HOL: 144 (09/21/2017) HDL: 50 (09/21/2017) CHOL (goal): 200 (08/09/2013) LDL (goal): 100 (08/09/2013) HDL (goal): 40 (08/09/2013) TG (goal): 150 (08/09/2013) Chris Correa MD Cardiology Chris Correa MD Cardiology Chris Correa MD Cardiology Chris Correa MD Cardiology Chris Correa MD Cardiology:INCREASE RX Chris herring MD Cardiology:NEW Chris Correa MD Cardiology: c ath 30% lad 17 s core 87, neg nuc 17, pos stres 13, ch ol controlled, on asa, no sxs, Chris Correa MD Cardiology:NML TSH, NML UACRT AND TELE n eg aaa and caroid n eg sleep study, nml folate with macro NEG CXR PER PT, NEG NUC 17, NML PRO, NML VIT D Chris Correa MD Cardiology: n mml pro Chris Correa MD Cardiology Chris Correa MD Cardiology: n mml pro wiwth lvh Chris Correa MD Cardiology:will incr esase rxCHOL: 144 (09/21/2017) HDL: 50 (09/21/2017) CHOL (goal): 200 (08/09/2013) LDL (goal): 100 (08/09/2013) HDL (goal): 40 (08/09/2013) TG (goal): 150 (08/09/2013) His updated medication list for this problem includes: Lipitor 40 Mg Oral Tablet (Atorvastatin calcium) ..... 2 tab. daily Chris Correa MD Cardiology:ok on rx, folate ok t oo has macor Chris Correa MD Cardiology: f eeshelley beter and numers better post in fusion, upto date with mauricio Correa MD Cardiology:cath 30% lad 17 s core 87, neg nuc 17, pos stres 13, ch ol controlled, on asa, no sxs, will cath give very bad faomil hx Chris Correa MD Cardiology:neg aaa a nd caroid n eg sleep study, nml folate with macro NEG CXR PER PT, NEG NUC 17, NML PRO, NML VIT D Chris Correa MD Cardiology: f nickie alegre and numers better, upto date with mauricio Correa MD Cardiology:nml uacr L abs Reviewed: C reat: 0.9 (01/28/2017) His updated medication list for this problem includes: Januvia 100 Mg Oral Tablet (Sitagliptin phosphate) ..... Take once a day Losartan Potassium 50 Mg Oral Tablet (Losartan potassium) ..... Daily Glipizide 5 Mg Oral Tablet (Glipizide) ..... Twice a day Aspirin Adult Low Dose 81 Mg Oral Tablet Delayed Release (Aspirin) ..... One tab by mouth daily Metformin Hcl 500 Mg Oral Tablet (Metformin hcl) ..... 2 tabs twice daily Chris Correa MD Cardiology: o n rx RX , folate norml with macro Chris Correa MD Cardiology: H is updated medication list for this problem includes: Lipitor 40 Mg Oral Tablet (Atorvastatin calcium) ..... One tab. daily C HOL: 135.0 (01/28/2017) HDL: 49.0 (01/28/2017) T.0 (01/28/2017) C HOL (goal): 200 (08/09/2013) LDL (goal): 100 (08/09/2013) HDL (goal): 40 (08/09/2013) TG (goal): 150 (08/09/2013) Chris Correa MD Cardiology:neg sleep study, nml folate with macro NEG CXR PER PT, NEG NUC 17, NML PRO, NML VIT D Chris Correa MD Cardiology:score 87, neg nuc 17, pos stres 13, ch ol controlled, on asa, no sxs, will cath give very bad faomil hx Chris Correa MD Cardiology:DUE TO BETA Chris herring MD Cardiology: H is updated medication list for this problem includes: Lipitor 40 Mg Tabs (Atorvastatin calcium) ..... One tab. daily C HOL: 135.0 (01/28/2017) HDL: 49.0 (01/28/2017) T.0 (01/28/2017) C HOL (goal): 200 (08/09/2013) LDL (goal): 100 (08/09/2013) HDL (goal): 40 (08/09/2013) TG (goal): 150 (08/09/2013) Chris Correa MD Cardiology: n eg nuc pos treadmeil 13, NEG CXR PER PT, NEG NUC 17, NML PRO, NML VIT D Chris Correa MD Cardiology:nmml pro wiwth lvh Domínguez diane Correa MD Cardiology:two neg tele, TSH NEG Chris Correa MD Cardiology:WILL RX adn check fol ate due to macrocytosi Chris Correa MD Cardiology:feels bet er and numers better, pt thinks he is upto date with colon Chris Correa MD Cardiology Follow up:recured cristian Correa MD Cardiology Follow up:7.3 Chris Correa MD Cardiology Follow up : B P today: 130/90 P rior BP: 136/80 (01/24/2015) Prior 10 Yr Risk Heart Disease: 9 % (08/09/2013) Labs Reviewed: C reat: 0.92 (06/14/2013) C hol: 134 (08/09/2013) HDL: 50 (08/09/2013) LDL: 74 (08/09/2013) T (08/09/2013) Chris Correa MD Cardiology Follow up :neg nuc pos treadmeil 13, NEG CXR PER PT Chris Correa MD follow up Chris Correa MD follow up : H is updated medication list for this problem includes: Losartan Potassium 50 Mg Tabs (Losartan potassium) ..... Daily Glipizide 10 Mg Tabs (Glipizide) ..... 2 times daily Aspirin 81 Mg Tabs (Aspirin) ..... One tab. daily Metformin Hcl 500 Mg Tabs (Metformin hcl) ..... 2 tabs twice daily BP today: 122/68 Prior BP: 122/68 (07/13/2013) Labs Reviewed: C reat: 0.92 (06/14/2013) Chris Correa MD follow up : H is updated medication list for this problem includes: Lipitor 40 Mg Tabs (Atorvastatin calcium) ..... One tab. daily BP today: 122/68 Prior BP: 122/68 (07/13/2013) C HOL: 134 (08/09/2013) LDL: 74 (08/09/2013) HDL: 50 (08/09/2013) T (08/09/2013) C HOL (goal): 200 (08/09/2013) LDL (goal): 100 (08/09/2013) HDL (goal): 40 (08/09/2013) TG (goal): 150 (08/09/2013) Chris Correa MD follow up : H is updated medication list for this problem includes: Losartan Potassium 50 Mg Tabs (Losartan potassium) ..... Daily Aspirin 81 Mg Tabs (Aspirin) ..... One tab. daily Carvedilol 3.125 Mg Tabs (Carvedilol) ..... One tab twice daily BP today: 122/68 P rior BP: 122/68 (07/13/2013) Prior 10 Yr Risk Heart Disease: 9 % (08/09/2013) Labs Reviewed: C reat: 0.92 (06/14/2013) C hol: 134 (08/09/2013) HDL: 50 (08/09/2013) LDL: 74 (08/09/2013) T (08/09/2013) Chris Correa MD follow up Chris Correa MD follow up Chris Correa MD follow up : H is updated medication list for this problem includes: Aspirin 81 Mg Tabs (Aspirin) ..... One tab. daily Carvedilol 3.125 Mg Tabs (Carvedilol) ..... One tab twice daily & #13;BP today: 122/68 Prior BP: 122/68 (07/13/2013) H CT: 41.3 (06/14/2013) Platelets: 189 (06/14/2013) C reat: 0.92 (06/14/2013) Na+: 140 (06/14/2013) K+: 4.3 (06/14/2013) TSH: 1.44 (06/14/2013) Stress Test: Inconclusive regular exercise treadmill stress test with up sloping ST depression seen in leads II, III, and AVF of up to 1 1/2 to 2mm. Average exercise tolerance for age. Normal blood pressure response to exercise. [facility] (06/27/2013) N uclear Stress Findings: 1. Normal myocardial perfusion imaging after vasodilator stress with Regadenoson. 2 . Normal left ventricular systolic function with a calculated ejection fraction of 54%. 3 . No obvious significant scintigraphic evidence of myocardial ischemia or scar. [facility] (07/17/2013) Chris Correa MD follow up : B P today: 122/68 Prior BP: 122/68 (07/13/2013) H CT: 41.3 (06/14/2013) Platelets: 189 (06/14/2013) C reat: 0.92 (06/14/2013) Na+: 140 (06/14/2013) K+: 4.3 (06/14/2013) TSH: 1.44 (06/14/2013) Stress Test: Inconclusive regular exercise treadmill stress test with up sloping ST depression seen in leads II, III, and AVF of up to 1 1/2 to 2mm. Average exercise tolerance for age. Normal blood pressure response to exercise. - [facility] (06/27/2013) N uclear Stress Findings: 1. Normal myocardial perfusion imaging after vasodilator stress with Regadenoson. 2 . Normal left ventricular systolic function with a calculated ejection fraction of 54%. 3 . No obvious significant scintigraphic evidence of myocardial ischemia or scar. [facility] (07/17/2013) Chris Correa MD follow up Chris Correa MD cholesterol manageme nt: H is updated medication list for this problem includes: Lipitor 40 Mg Tabs (Atorvastatin calcium) ..... One tab. daily Patient presents for lipid clinic. Values are at goal. Will continue current medications and return to lipid clinic in 6 months. Marlene Kearney NP consult for abn rt s tress : H is updated medication list for this problem includes: Aspirin 81 Mg Tabs (Aspirin) ..... One tab. daily Carvedilol 3.125 Mg Tabs (Carvedilol) ..... One tab twice daily Chris Correa MD consult for abn rt s tress : O rders: S TR - Adenosine (74059) M obile Cardiac Tele (CPT-67875) C omplete Echo (CPT-48133) X -Ray, Chest, PA & Lateral (CPT-85721) Chris Correa MD consult for abn rt s tress : B P today: 122/68 Prior BP: / () Orders: S TR - Adenosine (18565) M obile Cardiac Tele (CPT-25266) C omplete Echo (CPT-24478) X -Ray, Chest, PA & Lateral (CPT-10894) Chris Correa MD consult for abn rt s tress : H is updated medication list for this problem includes: Losartan Potassium 50 Mg Tabs (Losartan potassium) ..... Daily Aspirin 81 Mg Tabs (Aspirin) ..... One tab. daily Carvedilol 3.125 Mg Tabs (Carvedilol) ..... One tab twice daily BP today: 122/68 Orders: L ipid Strip (CPT-05234) S TR - Adenosine (89922) M obile Cardiac Tele (CPT-45831) C omplete Echo (CPT-31961) X -Ray, Chest, PA & Lateral (CPT-17734) Chris Correa MD consult for abn rt s tress : H is updated medication list for this problem includes: Losartan Potassium 50 Mg Tabs (Losartan potassium) ..... Daily Glipizide 10 Mg Tabs (Glipizide) ..... 2 times daily Aspirin 81 Mg Tabs (Aspirin) ..... One tab. daily Metformin Hcl 500 Mg Tabs (Metformin hcl) ..... 2 tabs twice daily BP today: 122/68 Prior BP: / () Orders: Lipid Strip (CPT-42447) S TR - Adenosine (04539) M obile Cardiac Tele (CPT-61426) C omplete Echo (CPT-13472) X -Ray, Chest, PA & Lateral (CPT-56284) Chris Correa MD consult for abn rt s tress : H is updated medication list for this problem includes: Aspirin 81 Mg Tabs (Aspirin) ..... One tab. daily Carvedilol 3.125 Mg Tabs (Carvedilol) ..... One tab twice daily Orders: L ipid Strip (CPT-33360) M obile Cardiac Tele (CPT-02807) C omplete Echo (CPT-75974) X -Ray, Chest, PA & Lateral (CPT-33644) Chris Correa MD Date Name Complete Echo Complete Echo Complete Echo Complete Echo HEMOGLOBIN A1c BASIC METABOLIC PANE L W/EGFR IRON AND TOTAL IRON BINDING CAPACITY FERRITIN LIPID PANEL DLCO - 34920 FRC - 17886 FVC - 88649 DLCO - 04930 FRC - 32144 FVC - 99801 Complete Echo IRON AND TOTAL IRON BINDING CAPACITY FERRITIN PROTHROMBIN TIME WIT H INR LIPID PANEL CBC (INCLUDES DIFF/P LT) BASIC METABOLIC PANE L W/EGFR Cardiac Cath - Left - [facility] PROTHROMBIN TIME WIT H INR LIPID PANEL CBC (INCLUDES DIFF/P LT) BASIC METABOLIC PANE L W/EGFR Carotid Duplex Bilat eral Aorta Duplex Ultraso und (AAA) VITAMIN B12 Complete Echo FOLATE, SERUM URINALYSIS, RANDOM, MICROALB/CREATININE Sleep Study Home CT, Coronary Calcium Score Complete Echo URINALYSIS, RANDOM, MICROALB/CREATININE FOLATE, SERUM IRON AND TOTAL IRON BINDING CAPACITY FERRITIN CBC (INCLUDES DIFF/P LT) Sleep Study Home Aortic Abdominal Ult rasound STR - Adenosine FERRITIN IRON AND TOTAL IRON BINDING CAPACITY VITAMIN D, 25-HYDROX Y, LC/MS/MS VITAMIN B12 CBC (INCLUDES DIFF/P LT) LIPID PANEL COMPREHENSIVE METABO LIC PANEL W/EGFR THYROID PANEL WITH T SH, 3RD GENERATION Renal Artery Duplex Complete Echo Mobile Cardiac Tele PROBNP, N TERMINAL X-Ray, Chest, PA & L ateral Complete Echo Mobile Cardiac Tele STR - Adenosine HISTORY OF PROCEDURES Procedure Date Procedure Name Provider Procedure Notes S tatus Complex e/m visit add on Naga Stevenson MD completed Complex e/m visit add on Adryan Constantino MD completed EKG Adryan Constantino MD completed EKG Adryan Constantino MD completed EKG Adryan Constantino MD completed EKG Jefferson Cade MD complet ed FVC / MVV with bronchodilator - 96625 Chris Correa MD completed BLOOD COUNT HEMOGLOBIN Chris Correa MD completed FRC - 01092 Chris Correa MD complet ed SpO2 w/o 6min walk/titration Chris Correa MD completed DLCO - 11356 Chris Correa MD comple jovita FVC / MVV with bronchodilator - 43156 Chris Correa MD completed BLOOD COUNT HEMOGLOBIN Chris Correa MD completed FRC - 68008 Chris Correa MD complet ed SpO2 - 09635 Chris Correa MD comple jovita DLCO - 44811 Chris Correa MD comple jovita SNOMED-CT: 438790250 597083 Current Medications Documented Chris Correa MD completed SNOMED-CT: 540638262 326159 Current Medications Documented Chris Correa MD completed CT- Coronary CA score Chris Correa MD completed SNOMED-CT: 676834516 033296 Current Medications Documented Chris Correa MD completed Injectafer 750mg Carmen Ross RN co mpleted Therapeutic IV Infus ion up to 1 hour Carmen Ross RN completed Injectafer 750mg Chris Correa MD co mpleted Therapeutic IV Infus ion up to 1 hour Chris Correa MD completed Stress EKG Charlene Burrell MD completed Regadenoson, 4 units Chris Correa MD completed Cardiolite, 2 units Chris Correa MD completed SPECT Images Charlene Burrell MD complet ed Event Monitor Chris Correa MD compl eted EKG Chris Correa MD complete d SNOMED-CT: 936913088 519429 Current Medications Documented Chris Correa MD completed EKG Chris Correa MD complete d Lipid Strip Chris Correa MD complet ed
--- OUTSIDE RECORDS SUMMARY | 2024-11-09 20:58 | XMS_ITS | Referral Summary ---
Author Organization [facility] Address [address] [place] [address] Care Team Providers Care Senior Property Manager Name Role Phone Otto Mcpherson MD Primary Care Provider Source Comments [facility],non-[facility] Affiliates and Associated Physician Practices is [facility] organization consisting of ambulatory clinics and hospital sitesin [place], [place], [place] and [place]. This disclosure is being madepursuant to the Care Everywhere program and may not contain all information available regarding this patient. Last updated 18.[facility] Allergies Active Allergy Reactions Criticality Noted Date [...] 06/11/2022 10:45 AM CDT Plan of Treatment Not on file Care Teams Senior Property Manager Relationship Specialty Start Date End Date Otto Mcpherosn MD [address] [place] [address] [facility] - General 04/04/19
--- OUTSIDE RECORDS SUMMARY | 2024-11-09 20:59 | XMS_ITS | Referral Summary ---
Author Organization [facility] [address] Address [address] [place] [address] Care Team Providers Care Typesetting Machine Tender Name Role Phone Otto Mcpherson MD Primary Care Provider Adryan Constantino MD Unavailable Lamont Molina MD Unavailable [phone] Allergies No known active allergies Medications [...] 0.4 mg extended release capsule 11/17/2021 Active deacxnxc41-ehqm- Lmfolate-algal 27 mg iron-1.13 mg-581.92 mg capsule [...] hyperlipidemia 01/06/2021 Right bundle branch block 01/06/2021 Social History Tobacco Use Types Packs/Day Years [...] on file 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 Gender Identity Not on file Sexual Orientation [...] 03/14/2022 12:05 AM CDT Plan of Treatment Not on file Medical Devices Implanted Type Area Analog Ic Design Engineer Device Identifier Shelf Expiration Date Model / Serial / Lot Medtronic Cardiac Rhythm Mgmt [id number] [place] S Mri Surescan 50.8x46.6mm 2 Chamber 7.4mm Pacemaker 22.5gm - [id number] - [id number] Implanted:Qty: 1 on 03/17/2022 by Adryan Constantino MD at [facility] Pacemaker Med[employer]onic Inc 07/15/2023 [id number] / [id number] / Med[employer]onic Inc Capsurefix Novus 6.2fr 2mm 58cm Bipolar Screw In Implantable 5076-58 - [id number] - [id number] Implanted:Qty: 1 on 03/17/2022 by Adryan Constantino MD at [facility] Med[employer]onic Inc 10/08/2023 5076-58 / [id number] / Medtronic Inc Capsurefix Novus 6.2fr 2mm 52cm Bipolar Screw In Implantable Latex Free 5076-52 - [id number] - [id number] Implanted:Qty: 1 on 03/17/20[facility]/15/2024 5076-52 / [id number] / Insurance MEDICARE [facility] [employer] MEDICARE [employer] MEDICARE [facility] Advance Directives For more information, please contact: [phone] * Full Code (Latest Code Status on File) Date Activated Date Inactivated Comments 03/14/2022 12:57 PM 03/19/2022 6:15 PM Care Teams Typesetting Machine Tender Relationship Specialty Start Date End Date Otto Mcpherson MD [address] [facility] [address] [place] [address] PCP - General Family Medicine 09/07/19 Adryan Constantino MD [address] [facility] [address] [place] [address] Referring Physician Cardiovascular Disease 03/19/22 Lamont Molina MD [address] [facility] [address] [place] [address] Consulting Physician Interventional Cardiology 03/19/22
== END 2024-11-09 15:37 | disposition home health service (06) ==
LOC: ANHSURGERY 08:21 → ANH3MEDSUR 11-09 08:17
PROVIDERS: PCP Family Medicine; Visit Provider Orthopaedic Surgery
PROC: (CPT 27447; principal; 2024-11-08 10:30)
DX: M17.12 Unilateral primary osteoarthritis, left knee (principal); G89.18 Other acute postprocedural pain; E11.9 Type 2 diabetes mellitus without complications; Z87.891 Personal history of nicotine dependence; Z79.84 Long term (current) use of oral hypoglycemic drugs
CPT/HCPCS: 27447; 64447; 36415; 73560; 80048; 82948; 85025; 86850; 86900; 86901; 97110; 97116; 97161; 97165; 97530; A9270; C1713; C1776; J0171; J0690; J1171; J1885; J2003; J2270; J2405; J2704; J2795; J3010; J7120

== ENCOUNTER 2025-05-23 00:23 | Day surgery (SDC) | payer MEDICARE, SELFPAY ==
[2025-05-07 12:05] VITALS: BMI 25.8
--- OUTSIDE RECORDS SUMMARY | 2025-05-23 00:28 | XMS_ITS | Referral Summary ---
Author Organization [facility] [place] [address] Address [address] [place] [address] Care Team Providers Care Social Worker Aide Name Role Phone Otto Mcpherson MD Primary Care Provider Adryan Constantino MD Unavailable Lamont Molina MD Unavailable [phone] Allergies No known active allergies Medications [...] 0.4 mg extended release capsule 11/17/2021 Active -ucfs- Lmfolate-algal 27 mg iron-1.13 mg-581.92 mg capsule [...] Noted Date Diagnosed Date Complete heart block 03/14/2022 Palpitation 01/06/2021 Essential hypertension 01/06/2021 Mixed [...] on file 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 Gender Identity Not on file Sexual Orientation Not on file Last Filed Vital Signs Vital Sign Reading Time Taken Comments Blood Pressure 99/57 03/19/2022 11:51 AM CDT Pulse 68 03/19/2022 12:00 PM CDT Temperature 36.3 C (97.4 F) 03/19/2022 11:51 AM CDT Respiratory Rate 18 03/19/2022 11:51 AM CDT Oxygen Saturation 94% 03/19/2022 11:51 AM CDT Inhaled Oxygen Concentration - - Weight 90.3 kg (199 lb) 03/14/2022 12:05 AM CDT Height 182.9 cm (6') 03/14/2022 12:05 AM CDT Body Mass Index 26.99 03/14/2022 12:05 AM CDT Plan of Treatment Not on file Medical Devices Implanted Type Area Compound Specialist Device Identifier Shelf Expiration Date Model / Serial / Lot Medtronic Cardiac Rhythm Mgmt [id number] [place] S Mri Surescan 50.8x46.6mm 2 Chamber 7.4mm Pacemaker 22.5gm - [id number] - [id number] Implanted:Qty: 1 on 03/17/2022 by Adryan Constantino MD at [facility] Pacemaker [employer] 07/15/2023 [id number] / [id number] / [employer] Inc Capsurefix Novus 6.2fr 2mm 58cm Bipolar Screw In Implantable 5076-58 - [id number] - [id number] Implanted:Qty: 1 on 03/17/2022 by Adryan Constantino MD at [facility] [employer] 10/08/2023 5076-58 / [id number] / Med[employer]onic Inc Capsurefix Novus 6.2fr 2mm 52cm Bipolar Screw In Implantable Latex Free 5076-52 - [id number] - [id number] Implanted:Qty: 1 on 03/17/2022 by Adryan Constantino MD at [facility] [employer] 01/15/2024 5076-52 / [id number] / Insurance MEDICARE [facility] [employer] MEDICARE [employer] MEDICARE [facility] Advance Directives For more information, please contact: [phone] * Full Code (Latest Code Status on File) Date Activated Date Inactivated Comments 03/14/2022 12:57 PM 03/19/2022 6:15 PM Care Teams Social Worker Aide Relationship Specialty Start Date End Date Otto Mcpherson MD [address] [facility] [address] [place] [address] PCP - General Family Medicine 09/07/19 Adryan Constantino MD [address] [facility] [address] [place] [address] Referring Physician Cardiovascular Disease 03/19/22 Lamont Molina MD [address] [facility] [address] [place] [address] Consulting Physician Interventional Cardiology 03/19/22
--- OUTSIDE RECORDS SUMMARY | 2025-05-23 00:28 | XMS_ITS | Clinical Summary ---
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 Gender Identity Not on file [...] on file Medical Devices Implanted Type Area Road Commissioner Device Identifier Shelf Expiration Date Model / Serial / Lot Medtronic Cardiac Rhythm Mgmt [id number] [place] S Mri Surescan 50.8x46.6mm 2 Chamber 7.4mm Pacemaker 22.5gm - [id number] - [id number] Implanted:Qty: 1 on 03/17/2022 by Adryan Constantino MD at [facility] Pacemaker [employer] Inc 07/15/2023 [id number] / [id number] / [employer] Inc Capsurefix Novus 6.2fr 2mm 58cm Bipolar Screw In Implantable 5076-58 - [id number] - [id number] Implanted:Qty: 1 on 03/17/2022 by Adryan Constantino MD at [facility] [employer] 10/08/2023 5076-58 / [id number] / Med[employer]onic Inc Capsurefix Novus 6.2fr 2mm 52cm Bipolar Screw In Implantable Latex Free 5076-52 - [id number] - [id number] Implanted:Qty: 1 on 03/17/2022 by Adryan Constantino MD at [facility] [employer] 01/15/2024 5076-52 / [id number] / [place] [address] [facility] [employer] MEDICARE [employer] MEDICARE [facility] Advance Directives For more information, please contact: [phone] * Full Code (Latest Code Status on File) Date Activated Date Inactivated Comments 03/14/2022 12:57 PM 03/19/2022 6:15 PM Care Teams Bilingual Social Worker Relationship Specialty Start Date End Date Otto Mcpherson MD [address] [facility] [address] [place] [address] PCP - General Family Medicine 09/07/19 Adryan Constantino MD [address] [facility] [address] [place] [address] Referring Physician Cardiovascular Disease 03/19/22 Lamont Molina MD [address] [facility] [address] [place] [address] Consulting Physician Interventional Cardiology 03/19/22
--- OUTSIDE RECORDS SUMMARY | 2025-05-23 00:28 | XMS_ITS | Clinical Summary ---
Author Organization [facility] Address [address] [place] [address] Care Team Providers Care Mixing Engineer Name Role Phone Otto Mcpherson MD Primary Care Provider [phone] [facility],non-[facility] Affiliates and Associated Physician Practices is amultiple site organization consisting of ambulatory clinics and hospital sitesin [place], [place], [place] and [place]. This disclosure is being madepursuant to the Care Everywhere program and may not contain all information available regarding this patient. Last updated 18.[facility] Allergies Active Allergy Reactions Criticality Noted Date Comments Dust Mite Extract Other High 08/05/2017 Grass Pollen(K-O-R-T-Swt Maninder) Other High 08/05 Medications * Be aware that medications may not be up to date on this document. Alwaysverify current medications with the patient. 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 Gender Identity Not on file Sexual [...] - COLON CA SCREENING 1950 MEDICARE AWV 12 MONTHS 1950 HEPATITIS C SCREENING 08/09/1968 DTAP/TDAP/TD VACCINES (1 - Tdap) 1969 PNEUMOCOCCAL VACCINE 50+ (1 of 1 - PCV) 2000 ZOSTER VACCINE (1 of 2) 2000 Respiratory Syncytial Virus (RSV) Vaccine Pt: or over 60 yrs (1 - Risk 60-74 years 1-dose series) 2010 AAA SCREENING 2015 COVID-19 VACCINE (1 - 2023-2 5 season) 2024 DEPRESSION SCREENING 10/18/2024 INFLUENZA VACCINE (#1) 2025 HEPATITIS B VACCINE Aged Out No longe r eligible based on patient's age to complete this topic HIB VACCINE Aged Out No longer eligi ble based on patient's age to complete this topic HPV VACCINE Aged Out No longer eligi ble based on patient's age to complete this topic MENINGOCOCCAL (Group B) VACC INE SHARED DECISION-MAKING Aged Out No longer eligibl e based on patient's age to complete this topic MENINGOCOCCAL GROUPS A/C/Y/W VACCINE Aged Out No longer eligible b ased on patient's age to complete this topic Insurance MEDICARE Care Teams Mixing Engineer Relationship Specialty Start Date End Date Otto Mcpherson MD [address] [place] [id number] PCP - General 04/04/19
[2025-05-23 06:12] VITALS: BP 97/52; PULSE 70; RESP 18; TEMP 36; O2SAT 100; BMI 24.9
[2025-05-23] MEDS: LACTATED RINGERS 1,000 ML 150 ML IV CONT (06:40)
--- NOTE | 2025-05-23 06:59 | WPDANESEPPF ---
Anes - Initial Pre Proc Eval Procedure: Operation Date: 05/23/25 07:30 Proposed Procedures p Screening Colonoscopy - Terrell Gutierrez MD Date/Time: 05/23/25 06:59 Surgeon: Terrell Gutierrez MD Pre Op Diagnosis: screening Patient Data Age: 74 Gender: M Height: 1.83 m Weight: 83.3 kg Last Vital Signs Temp 36.0 C L 05/23/25 06:12 Pulse 70 05/23/25 06:12 Resp 18 05/23/25 06:12 BP 97/52 L 05/23/25 06:12 Pulse Ox 100 05/23/25 06:12 O2 Del Method Room Air 05/23/25 06:12 Allergies Allergy/AdvReac Type Severity Reaction Status Date / Time No Known Allergies Allergy Verified 05/23/25 06:20 Home Medications ?Medication ?Instructions ?Recorded ?Confirmed ?Type finasteride 5 mg tablet 5 mg PO DAILY 09/01/19 05/23/25 History qyarfebi-gqx-ktxwb acid 0.4 1 tablet PO DAILY 09/01/19 05/23/25 History mg-lycopene 300 mcg-lutein 250 mcg tablet (Centrum Silver) tamsulosin 0.4 mg capsule (Flomax) 0.4 mg PO DAILY #90 caps 02/17/21 05/23/25 Rx sacubitril 49 mg-valsartan 51 mg 1 tablet PO BID 08/01/22 05/23/25 History tablet (Entresto) carvedilol 25 mg tablet 25 mg PO BID 05/18/23 05/23/25 History fluticasone fur. 100 mcg-umeclid 1 inh inhalation DAILY #180 ea 07/20/24 05/23/25 Rx 62.5 mcg-vilant 25 mcg inhalat.powder (Trelegy Ellipta) metformin 1,000 mg tablet 1,000 mg PO BID #180 tabs 08/13/24 05/23/25 Rx baclofen 10 mg tablet 5 mg (1/2 x 10 mg) PO DAILY #30 11/14/24 05/23/25 Rx tabs blood sugar diagnostic (OneTouch #100 strips 11/20/24 04/24/25 Rx Ultra Test strips) blood-glucose meter #1 ea 11/20/24 04/24/25 Rx omeprazole 40 mg capsule,delayed 40 mg PO DAILY #90 caps 12/18/24 05/23/25 Rx release atorvastatin 20 mg tablet 20 mg PO DAILY #90 tabs 12/24/24 05/23/25 Rx glipizide 5 mg tablet 5 mg PO BID #180 tabs 01/22/25 05/23/25 Rx montelukast 10 mg tablet 10 mg PO DAILY #90 tabs 02/19/25 05/23/25 Rx aspirin 81 mg tablet 81 mg PO HS 05/07/25 05/23/25 History fluticasone propionate 50 1 spray intranasal DAILY PRN nasal 05/07/25 05/23/25 History mcg/actuation nasal congestion spray,suspension (Flonase Allergy Relief) empagliflozin 25 mg tablet See Rx Instructions .Route 05/14/25 05/23/25 Rx (Jardiance) .COMPLEX #90 tabs Laboratory Tests 05/23/25 06:38 POC Capillary Glucose 141 H mg/dl (65-105) Patient hx anesthesia problems: none Family hx anesthesia problems: none Results Review: All pre-operative results and documents have been reviewed as part of the pre-operative evaluation. [facility] Past Medical History Medical History Cardiac pacemaker Device Name: [place] Left knee DJD Personal history of nicotine dependence Dysphagia Cough Emphysema, unspecified CHF (congestive heart failure) EF 45% Heart failure due to high blood pressure Atypical chest pain History of smoking 30 or more pack years Diabetes mellitus Type 2 diabetes mellitus with hyperglycemia Chronic GERD Coronary artery disease involving [place] coronary artery of [place] heart Enlarged prostate with lower urinary tract symptoms (LUTS) History of colon polyps Pure hypercholesterolemia Type 2 diabetes mellitus without complications Surgical History Surgical History S/P total knee arthroplasty LT TKA 11/08/24- Dr. Choe History of right knee surgery 03/27/2004 Status cardiac pacemaker History of appendectomy Hx of tonsillectomy Family History Family History Mother Family history of Alzheimer's disease Hypertension Family history of heart disease in male family member before age 55 Family history of coronary artery disease Father Family history of diabetes mellitus in first degree relative Family history of heart disease in male family member before age 55 Hypertension Family history of coronary artery disease Sibling Patient's sister is in good health Patient's brother is in good health Other Cerebrovascular accident Diabetes mellitus Family history of allergic disorder Family history of cardiovascular disease Social History Social History Smoking packs per day: 2.5 Smoking cigarettes per day: 50.0 Years smoked: 26 Smoking pack-years: 65.00 Smoking status: Former smoker Tobacco type: cigarettes Second hand tobacco smoke exposure: No Alcohol intake: never Substance use: never Substance use type: does not use Do You Feel Safe in your Home?: Yes Lack of Transportation: No Lack of Food: Never True Current Housing: I Have Housing Concerned About Future Housing: No Difficulty Paying Gas/Electric Bills: No Difficulty Paying for Meds: No Currently Unemployed: No Education: Decline to Answer Difficulty w/ Childcare or Family Care: No Living arrangements: with family Additional living arrangements comments: Occupation/Education: retired Gender identity (if verbalized by the patient): Male Sexual Orientation (if Verbalized by the Patient): Straight or Heterosexual Spiritual care concerns: No Anes - Eval Final PreProcedure Day of Procedure 05/23/25 06:59 Patient weight: normal Heart: regular rate and rhythm Lungs: clear to auscultation and normal air movement Airway: Mallampati scale class II Neurological: alert and oriented Last oral intake: >/= 8 hours ASA classification: IV Emergent: no Anesthetic plan: proceed Anesthesia type and monitoring: general GIVS and standard monitoring Results Review: All pre-operative results and documents have been reviewed as part of the pre-operative evaluation. Informed Consent: The patient's anesthetic plan and its attendant risks and benefits were discussed with the patient/family/POA. Questions were solicited and answers provided to the satisfaction of the patient/family/POA.
--- NOTE | 2025-05-23 07:30 | P.HP_ITS ---
H&P: HPI History of Present Illness Date/Time: 05/23/25 07:30 Chief Complaint: History of colon polyps Narrative: The patient has a history of colonic polyps, the last colonoscopy was about 5 years ago. Review of Systems Review of Systems: All systems reviewed & are unremarkable except as noted in HPI and below [facility] Past Medical History Medical History Cardiac pacemaker Device Name: [place] Left knee DJD Personal history of nicotine dependence Dysphagia Cough Emphysema, unspecified CHF (congestive heart failure) EF 45% Heart failure due to high blood pressure Atypical chest pain History of smoking 30 or more pack years Diabetes mellitus Type 2 diabetes mellitus with hyperglycemia Chronic GERD Coronary artery disease involving [place] coronary artery of [place] heart Enlarged prostate with lower urinary tract symptoms (LUTS) History of colon polyps Pure hypercholesterolemia Type 2 diabetes mellitus without complications Surgical History Surgical History S/P total knee arthroplasty LT TKA 11/08/24- Dr. Choe History of right knee surgery 03/27/2004 Status cardiac pacemaker History of appendectomy Hx of tonsillectomy Family History Family History Mother Family history of Alzheimer's disease Hypertension Family history of heart disease in male family member before age 55 Family history of coronary artery disease Father Family history of diabetes mellitus in first degree relative Family history of heart disease in male family member before age 55 Hypertension Family history of coronary artery disease Sibling Patient's sister is in good health Patient's brother is in good health Other Cerebrovascular accident Diabetes mellitus Family history of allergic disorder Family history of cardiovascular disease Social History Social History Smoking packs per day: 2.5 Smoking cigarettes per day: 50.0 Years smoked: 26 Smoking pack-years: 65.00 Smoking status: Former smoker Tobacco type: cigarettes Second hand tobacco smoke exposure: No Alcohol intake: never Substance use: never Substance use type: does not use Do You Feel Safe in your Home?: Yes Lack of Transportation: No Lack of Food: Never True Current Housing: I Have Housing Concerned About Future Housing: No Difficulty Paying Gas/Electric Bills: No Difficulty Paying for Meds: No Currently Unemployed: No Education: Decline to Answer Difficulty w/ Childcare or Family Care: No Living arrangements: with family Additional living arrangements comments: Occupation/Education: retired Gender identity (if verbalized by the patient): Male Sexual Orientation (if Verbalized by the Patient): Straight or Heterosexual Spiritual care concerns: No Meds Home Medications and Allergies Home Medications ?Medication ?Instructions ?Recorded ?Confirmed ?Type finasteride 5 mg tablet 5 mg PO DAILY 09/01/19 05/23/25 History pnnfcvch-hes-bbqsw acid 0.4 1 tablet PO DAILY 09/01/19 05/23/25 History mg-lycopene 300 mcg-lutein 250 mcg tablet (Centrum Silver) tamsulosin 0.4 mg capsule (Flomax) 0.4 mg PO DAILY #90 caps 02/17/21 05/23/25 Rx sacubitril 49 mg-valsartan 51 mg 1 tablet PO BID 08/01/22 05/23/25 History tablet (Entresto) carvedilol 25 mg tablet 25 mg PO BID 05/18/23 05/23/25 History fluticasone fur. 100 mcg-umeclid 1 inh inhalation DAILY #180 ea 07/20/24 05/23/25 Rx 62.5 mcg-vilant 25 mcg inhalat.powder (Trelegy Ellipta) metformin 1,000 mg tablet 1,000 mg PO BID #180 tabs 08/13/24 05/23/25 Rx baclofen 10 mg tablet 5 mg (1/2 x 10 mg) PO DAILY #30 11/14/24 05/23/25 Rx tabs blood sugar diagnostic (OneTouch #100 strips 11/20/24 04/24/25 Rx Ultra Test strips) blood-glucose meter #1 ea 11/20/24 04/24/25 Rx omeprazole 40 mg capsule,delayed 40 mg PO DAILY #90 caps 12/18/24 05/23/25 Rx release atorvastatin 20 mg tablet 20 mg PO DAILY #90 tabs 12/24/24 05/23/25 Rx glipizide 5 mg tablet 5 mg PO BID #180 tabs 01/22/25 05/23/25 Rx montelukast 10 mg tablet 10 mg PO DAILY #90 tabs 02/19/25 05/23/25 Rx aspirin 81 mg tablet 81 mg PO HS 05/07/25 05/23/25 History fluticasone propionate 50 1 spray intranasal DAILY PRN nasal 05/07/25 05/23/25 History mcg/actuation nasal congestion spray,suspension (Flonase Allergy Relief) empagliflozin 25 mg tablet See Rx Instructions .Route 05/14/25 05/23/25 Rx (Jardiance) .COMPLEX #90 tabs Allergies Allergy/AdvReac Type Severity Reaction Status Date / Time No Known Allergies Allergy Verified 05/23/25 06:20 Vital Signs Vital Signs - 24 hr 05/23/25 06:12 Temperature 96.8 F L Pulse Rate 70 Respiratory Rate 18 Blood Pressure 97/52 L Pulse Oximetry 100 Oxygen Delivery Room Air Exam Const: General: cooperative and healthy appearing Resp: Effort & Inspection: normal respiratory effort and able to speak in complete sentences Auscultation: clear to auscultation bilaterally Cardio: Rate: regular rate Rhythm: regular rhythm GI: Inspection: normal to inspection GI Palp: No No hepatosplenomegaly present Auscultation: normal bowel sounds Rectal Exam: deferred Skin: General skin exam: normal color Psych: Appearance: grossly normal Mental Status: mental status grossly normal Assessment and Plan Assessment and plan (1) History of colonic polyps: Code(s): Z86.0100 - Personal history of colon polyps, unspecified Status: Acute Assessment and Plan: The patient is deemed a good candidate for the procedure. Consent signed. Will proceed.
--- NOTE | 2025-05-23 07:48 | S_PTH ---
PATIENT: Felipe York LOC: [facility] U#:[id number] AGE/SX: 74/M ROOM: RE05/23/[address]: Terrell Gutierrez MD : 1950 BED: DIS: 05/23/2025 SPEC #: [id number] RECD: 05/23/25 09:04 STATUS: DIANNE REQ #: [id number] DAIANA: 05/23/25 07:[address]: Terrell Gutierrez DEPT: [facility] Surgical RECD BY: Josefa Zacarias ENTERED: 05/23/25 09:04 SP TYPE: Surgical OTHR DR: Otto Mcpherson MD Tissues: A - Colon Polypectomy B - Colon Polypectomy Procedures: Hematoxylin and Eosin Stain Gross and Microscopic Level 4
[2025-05-23 07:53] VITALS: BP 103/61; PULSE 68; RESP 15; O2SAT 98
[2025-05-23 08:03] VITALS: BP 116/69; PULSE 67; RESP 18; O2SAT 100
[2025-05-23 08:13] VITALS: BP 120/66; PULSE 61; RESP 12; O2SAT 100
== END 2025-05-23 08:23 | disposition home or self-care (01) ==
PROVIDERS: PCP Family Medicine; Referring Provider Family Medicine; Visit Provider Internal Medicine Gastroenterology
PROC: 0DJD8ZZ Inspection of Lower Intestinal Tract, Via Natural or Artificial Opening Endoscopic (ICD-10-PCS; CPT 45378; principal; 2025-05-23 07:30)
DX: Z12.11 Encounter for screening for malignant neoplasm of colon (principal); D12.5 Benign neoplasm of sigmoid colon; K62.1 Rectal polyp; E11.9 Type 2 diabetes mellitus without complications; Z87.891 Personal history of nicotine dependence
CPT/HCPCS: 45385; 82948; 88305; J2704; J7120